=== PATIENT | male | born 1945 | race Caucasian/White ===

== ENCOUNTER → 2016-08-02 | Outpatient (CLI) | payer OTHER ==
[~2016-08-02] MED LIST: CIPR5SUS PO; FLAG500T PO; LISI10TA4 PO; RANI150T PO; SIMV20TA2 PO
[2016-08-02 13:45] LABS: BASO # 0.2 K/mm3 (0.0-0.2); BASO % 2.4 % (0.0-1.0); EOS # 0.2 K/mm3 (0.0-0.50); LARGE UNSTAINED CELL # 0.2 K/mm3 (0.0-0.4); LARGE UNSTAINED CELL % 2.7 % (0.0-4.0); MEAN CORPUSCULAR HEMOGLOBIN 31.2 pg (27.0-33.0); MEAN CORPUSCULAR HGB CONC 33.1 g/dl (32.0-36.5); MEAN CORPUSCULAR VOLUME 94.1 fl (80.0-96.0); MONO # 0.5 K/mm3 (0.0-0.8); NEUTROPHILS # 4.5 K/mm3 (1.8-7.7); NEUTROPHILS % 60.9 % (36.0-66.0); PLATELET COUNT, AUTOMATED 402 k/mm3 (150-450); RED CELL DISTRIBUTION WIDTH 14.2 % (11.5-14.5); WHITE BLOOD COUNT 7.4 K/mm3 (4.0-10.0)
[2016-08-02 14:18] LABS: ALBUMIN 3.2 GM/DL (3.2-5.2); ALBUMIN/GLOBULIN RATIO 1.07 (1.00-1.93); ALKALINE PHOSPHATASE 131 U/L (45-117); ALT/SGPT 20 U/L (12-78); ANION GAP 8 MEQ/L (8-16); AST/SGOT 18 U/L (15-37); BILIRUBIN,TOTAL 0.5 MG/DL (0.2-1.0); BLOOD UREA NITROGEN 12 MG/DL (7-18); CALCIUM LEVEL 8.3 MG/DL (8.8-10.2); CARBON DIOXIDE LEVEL 27 MEQ/L (21-32); CHLORIDE LEVEL 109 MEQ/L (98-107); CREATININE FOR GFR 1.03 MG/DL (0.70-1.30); GLOMERULAR FILTRATION RATE > 60.0 (>49); GLUCOSE, FASTING 87 MG/DL (80-110); POTASSIUM SERUM 4.2 MEQ/L (3.5-5.1); SODIUM LEVEL 144 MEQ/L (136-145); TOTAL PROTEIN 6.2 GM/DL (6.4-8.2)
== END ==
LOC: M LAB 12:46
PROVIDERS: ATTEND Student in an Organized Health Care Education/Training Program
DX: Z51.81 Encounter for therapeutic drug level monitoring (principal); Z76.89 Persons encountering health services in other specified circumstances
CPT/HCPCS: 36415; 80053; 85025; G0463

== ENCOUNTER → 2016-08-18 | Outpatient (REF) | payer OTHER | END | disposition home or self-care (01) | LOC: M SFHCPLAZ 14:52 | PROVIDERS: ATTEND Hospitalist | DX: N39.9 Disorder of urinary system, unspecified (principal); Z79.899 Other long term (current) drug therapy ==

== ENCOUNTER → 2016-09-14 | Outpatient (CLI) | payer OTHER ==
[~2016-09-14] VITALS: Ht 160 cm; Wt 50.8 kg
[~2016-09-14] MED LIST changes: +LIDOCAINE 2% INJ 100 MG/5 ML SDV (FOR ANES.) As Ordered ONE; +NS 1,000 ML IV SCH; +PROPOFOL 500 MG/50 ML VIAL As Ordered ONE
--- NOTE | 2016-09-14 08:27 | ROOR ---
Patient Name: Guanaco Kirby Procedure Date: 09/14/2016 8:08 AM Date of : 1945 Age: 70 Room: [facility] Gender: Male Note Status: Finalized Procedure: Colonoscopy Indications: Follow-up of diverticulitis Providers: Cordell Doe Jr, MD Referring MD: PPAITO PERDOMO [facility] PAPITO Reyes Requesting Provider: Medicines: Propofol per Anesthesia Complications: No immediate complications. Procedure: Pre-Anesthesia Assessment: - Prior to the procedure, a History and Physical was performed, and patient medications and allergies were reviewed. The patient is competent. The risks and benefits of the procedure and the sedation options and risks were discussed with the patient. All questions were answered and informed consent was obtained. Patient identification and proposed procedure were verified by the physician and the nurse in the pre-procedure area and in the procedure room. Mental Status Examination: alert and oriented. Airway Examination: normal oropharyngeal airway and neck mobility. Respiratory Examination: clear to auscultation. CV Examination: normal. ASA Grade Assessment: II - A patient with mild systemic disease. After reviewing the risks and benefits, the patient was deemed in satisfactory condition to undergo the procedure. The anesthesia plan was to use moderate sedation / analgesia (conscious sedation). Immediately prior to administration of medications, the patient was re-assessed for adequacy to receive sedatives. The heart rate, respiratory rate, oxygen saturations, blood pressure, adequacy of pulmonary ventilation, and response to care were monitored throughout the procedure. The physical status of the patient was re-assessed after the procedure. The Colonoscope was introduced through the sigmoid colostomy and advanced to the cecum, identified by appendiceal orifice and ileocecal valve. The colonoscopy was performed without difficulty. The patient tolerated the procedure well. The quality of the bowel preparation was adequate and good. Findings: The perianal and digital rectal examinations were normal. Pertinent negatives include normal sphincter tone, no palpable rectal lesions and no anal lesion or abnormality was detected. The rectum, recto-sigmoid colon, descending colon, transverse colon, ascending colon, cecum, appendiceal orifice and ileocecal valve appeared normal. Impression: - The rectum, recto-sigmoid colon, descending colon, transverse colon, ascending colon, cecum, appendiceal orifice and ileocecal valve are normal. - No specimens collected. Recommendation: - Discharge patient to home (ambulatory). - Return to my office in 2 weeks. Cordell Doe MD Cordell Doe Jr, MD 09/14/2016 8:26:48 AM This report has been signed electronically. Number of Addenda: 0 Note Initiated On: 09/14/2016 8:08 AM Estimated Blood Loss: Estimated blood loss: none.
[2016-09-14 08:50] VITALS: BP 128/72
== END | disposition home or self-care (01) ==
LOC: M OPP 07:11
PROVIDERS: ATTEND Surgery
DX: Z09 Encounter for follow-up examination after completed treatment for conditions other than malignant neoplasm (principal); Z87.19 Personal history of other diseases of the digestive system; I10 Essential (primary) hypertension; E78.00 Pure hypercholesterolemia, unspecified; K21.9 Gastro-esophageal reflux disease without esophagitis; Z97.2 Presence of dental prosthetic device (complete) (partial); F17.200 Nicotine dependence, unspecified, uncomplicated; F17.228 Nicotine dependence, chewing tobacco, with other nicotine-induced disorders; Z79.899 Other long term (current) drug therapy

== ENCOUNTER → 2016-11-01 | Outpatient (CLI) | payer OTHER ==
[~2016-11-01] MED LIST changes: -LIDOCAINE 2% INJ 100 MG/5 ML SDV (FOR ANES.) As Ordered ONE; -NS 1,000 ML IV SCH; -PROPOFOL 500 MG/50 ML VIAL As Ordered ONE
[2016-11-01 15:31] LABS: MEAN CORPUSCULAR HEMOGLOBIN 32.7 pg (27.0-33.0); MEAN CORPUSCULAR HGB CONC 32.8 g/dl (32.0-36.5); MEAN CORPUSCULAR VOLUME 99.5 fl (80.0-96.0); RED CELL DISTRIBUTION WIDTH 12.7 % (11.5-14.5); WHITE BLOOD COUNT 7.3 K/mm3 (4.0-10.0)
[2016-11-01 15:56] LABS: ANION GAP 7 MEQ/L (8-16); BLOOD UREA NITROGEN 17 MG/DL (7-18); CALCIUM LEVEL 8.4 MG/DL (8.8-10.2); CARBON DIOXIDE LEVEL 26 MEQ/L (21-32); CHLORIDE LEVEL 106 MEQ/L (98-107); CHOLESTEROL LEVEL 215 MG/DL (<200); CREATININE FOR GFR 1.03 MG/DL (0.70-1.30); GLOMERULAR FILTRATION RATE > 60.0 (>49); GLUCOSE, FASTING 103 MG/DL (80-110); POTASSIUM SERUM 4.4 MEQ/L (3.5-5.1); SODIUM LEVEL 139 MEQ/L (136-145); TRIGLYCERIDES LEVEL 146 MG/DL (<150)
== END ==
LOC: M LAB 14:03
PROVIDERS: ATTEND Student in an Organized Health Care Education/Training Program
DX: Z00.00 Encounter for general adult medical examination without abnormal findings (principal); Z71.89 Other specified counseling; Z79.899 Other long term (current) drug therapy

== ENCOUNTER 2016-11-10 05:44 | Inpatient (IN) | payer OTHER ==
--- NOTE | 2016-11-09 16:44 | HPE ---
DATE OF ADMISSION: 11/10/2016 BRIEF HISTORY OF PRESENT ILLNESS: Patient is a 70-year-old gentleman who had a colostomy placed for a perforated diverticulitis and has been slowly healing by secondary intention. Had significant problems with healing because of poor malnutrition issues, a heavy smoker, and heavy alcohol use. He presents for reversal of his colostomy at this time. PAST MEDICAL HISTORY: Significant for: 1. History of diverticulosis. 2. History of hypercholesterolemia. 3. History of hypertension. 4. History of exploratory laparotomy with sigmoid colectomy and end colostomy. 5. History of gastroesophageal (GE) reflux. MEDICATIONS: Include: - simvastatin - lisinopril - ranitidine PHYSICAL EXAMINATION: Reveals a frail-appearing 70-year-old male who looks much older than his stated age. HEENT: Reveals an atraumatic, normocephalic head with extraocular movements intact. Pupils are equal and reactive to light. Sclerae are nonicteric. Oropharynx is clear without exudate or lesions. NECK: Supple without adenopathy. LUNGS: Reveal rhonchi as well as a few wheezes and some crackles bilaterally. HEART: Regular with a few irregular beats. ABDOMEN: Soft, nondistended. He does have what appears to be a probable incisional hernia along the midline and is developing a parastomal hernia as well and has a colostomy which is functioning, very small in size. EXTREMITIES: Warm, well perfused. IMPRESSION/PLAN: 1. Patient presents for reversal of a colostomy. I do feel that it is reasonable to proceed with a laparoscopic reversal of his colostomy. The risks as well as benefits have been discussed with him at length, those including, but not limited to, infection, bleeding, damage to surrounding structures including bowel, bladder, nerves, vessels, ureter, kidney, and possible need for permanent colostomy or possible anastomotic leak, possible need for open operative intervention. Patient understands and would like to proceed with operative intervention. 2. Respiratory. Patient has some chronic obstructive pulmonary disease (COPD) as well as chronic smoking issues. We will continue nebulizers/respiratory care perioperatively. 3. Abdominal hernias. At this point, given that this will be a bowel surgery, I would prefer not to use mesh and, unless we use a biologic or an absorbable synthetic, I will not plan on repairing the midline hernias at this time and will try to avoid getting into these areas. I anticipate those will need operative repair in the future. He understands this as a possibility as well. 4. Gastrointestinal (GI) tract. Patient does have some GE reflux. We will continue him on some H2 blockers/proton pump inhibitors; and indeed, he is getting a bowel preparation, mechanical as well as antibiotic. We will give him perioperative antibiotics, i.e. Invanz 1 gram preoperatively, and plan on having some thromboembolism deterrents (TEDs) and sequentials. I anticipate, if we are able to do this all laparoscopically, we can avoid postoperative epidural but will need a [place] catheter for a few days postoperatively. Edited: elaine 11/15/2016 [id number]
[2016-11-10] VITALS (8 sets, daily range): BP systolic 134–173; BP diastolic 63–93; O2SAT 100
[~2016-11-10] VITALS: Ht 160 cm; Wt 59.8 kg
[2016-11-10] MEDS ORDERED: LR 1,000 ML IV SCH ×3 (06:00→10:45)
[2016-11-10] MEDS ORDERED: ERTAPENEM SODIUM 1 GM in NS MINI-BAG PLUS 50 ML IV ONE (06:00)
[2016-11-10] MEDS ORDERED: IBUP200C PO (06:14)
[2016-11-10] MEDS ORDERED: GLUCAGON FOR INJ 1 MG VIAL (J1610) As Ordered ONE (07:10)
[2016-11-10] MEDS ORDERED: BUPIVACAINE/EPIN 0.25% 30 ML VIAL As Ordered ONE (07:10)
[2016-11-10] MEDS ORDERED: PROPOFOL 200 MG/20 ML VIAL As Ordered ONE (07:55)
[2016-11-10] MEDS ORDERED: LIDOCAINE 2% INJ 100 MG/5 ML SDV (FOR ANES.) As Ordered ONE (07:55)
[2016-11-10] MEDS ORDERED: fentaNYL 250 MCG/5 ML INJECTION (J3010) As Ordered ONE (07:55)
[2016-11-10] MEDS ORDERED: ROCURONIUM BROMIDE 50 MG/5 ML VIAL As Ordered ONE ×2 (07:55→08:04)
[2016-11-10] MEDS ORDERED: MIDAZOLAM INJ 2 MG/2 ML VIAL (J2250) As Ordered ONE (07:55)
[2016-11-10] MEDS ORDERED: PHENYLephrine HCL 500 MCG/5 ML (100MCG/ML) SYRINGE (J2370) As Ordered ONE (07:57)
[2016-11-10] MEDS ORDERED: PHENYLEPHRINE INJ 10MG/ML VIAL (J2370) As Ordered ONE (07:57)
[2016-11-10] MEDS ORDERED: ESMOLOL INJ 100MG/10ML VIAL As Ordered ONE (08:33)
[2016-11-10] MEDS ORDERED: HYDROmorphone HCL 2 MG/ML 1ML VIAL (J1170) As Ordered ONE (08:35)
[2016-11-10] MEDS ORDERED: ONDANSETRON 4MG/2ML VIAL (J2405) As Ordered ONE (08:51)
[2016-11-10] MEDS ORDERED: DESFLURANE 240 ML INHALANT As Ordered ONE (09:11)
[2016-11-10] MEDS ORDERED: NEOSTIGMINE 1MG/ML 5 ML SYRINGE (J2710) As Ordered ONE (09:41)
[2016-11-10] MEDS ORDERED: GLYCOPYRROLATE INJ 0.2 MG/ML 2 ML VIAL As Ordered ONE (09:41)
[2016-11-10] MEDS ORDERED: BUPIVACAINE LIPOSOME/PF 1.3% 20 ML VIAL (13.3MG/ML)(EXPAREL) As Ordered ONE (10:03)
[2016-11-10] MEDS ORDERED: MORPHINE 4 MG/ML 1ML SYRINGE IV PRN (10:30)
[2016-11-10] MEDS ORDERED: IPRATROPIUM 0.5MG/ALBUTEROL 2.5MG INH SOL UD 3ML (DUONEB)(J7620) NEB PRN (10:30)
[2016-11-10] MEDS ORDERED: PROMETHAZINE INJ 25 MG/ML VIAL (J2550) IV PRN (10:30)
[2016-11-10] MEDS ORDERED: ONDANSETRON 4MG/2ML VIAL (J2405) IV PRN ×2 (10:30→10:45)
[2016-11-10] MEDS ORDERED: METOCLOPRAMIDE INJ 10MG/2ML VIAL (J2765) IV PRN (10:30)
[2016-11-10] MEDS ORDERED: HYDROmorphone HCL 1 MG/ML SYRINGE (J1170) As Ordered ONE (10:38)
[2016-11-10] MEDS: HYDROmorphone HCL 1 MG/ML SYRINGE (J1170) IV PRN ×3 (10:42→11:02)
[2016-11-10] MEDS ORDERED: fentaNYL 100 MCG/2 ML INJECTION (J3010) IV PRN (10:45)
[2016-11-10] MEDS: LR 1,000 ML IV SCH ×2 (11:42→18:19)
[2016-11-10] MEDS: IPRATROPIUM 0.5MG/ALBUTEROL 2.5MG INH SOL UD 3ML (DUONEB)(J7620) NEB SCH ×2 (14:00→19:32)
[2016-11-10] MEDS: FAMOTIDINE 20 MG TAB PO SCH ×2 (14:02→20:36)
[2016-11-10] MEDS: LISINOPRIL 10 MG TAB PO SCH (14:03)
[2016-11-10] MEDS: SIMVASTATIN 20 MG TAB PO SCH (20:37)
[2016-11-11 02:00] VITALS: BP 157/78
[2016-11-11 05:51] LABS: MEAN CORPUSCULAR HEMOGLOBIN 32.4 pg (27.0-33.0); MEAN CORPUSCULAR HGB CONC 32.5 g/dl (32.0-36.5); MEAN CORPUSCULAR VOLUME 99.7 fl (80.0-96.0); RED CELL DISTRIBUTION WIDTH 12.8 % (11.5-14.5); WHITE BLOOD COUNT 9.2 K/mm3 (4.0-10.0)
[2016-11-11 06:00] VITALS: BP 161/89
[2016-11-11 06:01] LABS: ANION GAP 6 MEQ/L (8-16); BLOOD UREA NITROGEN 12 MG/DL (7-18); CALCIUM LEVEL 7.5 MG/DL (8.8-10.2); CARBON DIOXIDE LEVEL 26 MEQ/L (21-32); CHLORIDE LEVEL 107 MEQ/L (98-107); CREATININE FOR GFR 0.86 MG/DL (0.70-1.30); GLOMERULAR FILTRATION RATE > 60.0 (>49); GLUCOSE, FASTING 90 MG/DL (80-110); POTASSIUM SERUM 4.4 MEQ/L (3.5-5.1); SODIUM LEVEL 139 MEQ/L (136-145)
[2016-11-11] MEDS: IPRATROPIUM 0.5MG/ALBUTEROL 2.5MG INH SOL UD 3ML (DUONEB)(J7620) NEB SCH ×3 (07:46→20:00)
[2016-11-11] MEDS: ERTAPENEM SODIUM 1 GM in NS MINI-BAG PLUS 50 ML IV SCH (08:22)
[2016-11-11] MEDS: LR 1,000 ML IV SCH ×3 (08:23→14:35)
[2016-11-11] MEDS: LISINOPRIL 10 MG TAB PO SCH (08:23)
[2016-11-11] MEDS: FAMOTIDINE 20 MG TAB PO SCH ×2 (08:23→21:16)
[2016-11-11 10:00] VITALS: BP 149/73
--- NOTE | 2016-11-11 11:14 | RO ---
DATE OF PROCEDURE: 11/10/2016 PREOPERATIVE DIAGNOSIS: History of diverticulitis with diverting colostomy and need for reversal of colostomy. POSTOPERATIVE DIAGNOSIS: History of diverticulitis with diverting colostomy and need for reversal of colostomy. PROCEDURE: Laparoscopic colostomy reversal. SURGEON: Dr. Cordell Doe REWRITE EDITOR: Dr. Olguin (Dr. Olguin provided retraction, assistance with the anastomosis, abdominal wall closure and exposure.) ANESTHESIA: General endotracheal anesthesia. ESTIMATED BLOOD LOSS: Minimal. DISPOSITION: The patient was taken to the recovery room awake, alert and hemodynamically stable. DESCRIPTION OF PROCEDURE: The patient was brought to the operating room and was given general anesthesia. After adequate anesthesia and preoperative antibiotics, the patient was prepped and draped in the usual sterile fashion. Next, the colostomy was closed using a running #1 Prolene suture, and the colostomy was mobilized out of its site using an elliptical incision around the colostomy with skin knife. Electrocautery was used cut through dermis, underlying subcutaneous tissue. Using a combination of blunt and sharp dissection, the colostomy was mobilized off the skin, subcutaneous tissue down through the fascia and then intra-abdominally I was able to mobilize some of the adhesions bluntly. Some were mobilized with electrocautery and eventually once I was able to get a good margin around the colostomy site and all clear of adhesions, a Hansel catheter was placed into this colostomy site. The abdomen was insufflated at this time and then a 5 mm left lower quadrant trocar was placed, an epigastric 10 mm trocar was placed and two right-sided 5 mm trocars were placed to take down abdominal wall adhesions as well as intra-abdominal adhesions. Multiple adhesions were taken down along the anterior abdominal wall. Most of these were able to be taken down sharply, some were taken down with Harmonic scalpel. After adequate mobilization of all these adhesions, the small bowel which was in the pelvis was able to be taken down with sharp dissection as well as Harmonic scalpel. These were all mobilized off the mesentery of the removed sigmoid colon. There was some small bowel to colon adhesions which were also taken down. Eventually, the colostomy was grasped and mobilized and brought to the rectal stump area. It was obvious that the rectal stump needed to be mobilized to some extent as well as the descending colon. Thus, multiple adhesions along the descending colon were taken down as well and this was mobilized off Gerota's fascia. Given the patient was quite a thin appearing male, and he did not have a very thick mesentery, I was able to mobilize this quite nicely all the way to the medial aspect of Gerota's capsule. Anyway, this was continued to be mobilized off the pelvic sidewall and once this was mobilized quite nicely, the rectal stump was also mobilized to some extent. There were some minimal adhesions that were angulating the rectal stump. These were mobilized as well as the peritoneum was opened on both sides of the rectal stump and anteriorly. Once this was performed, the dilators were placed in the rectum and did reach the end of the rectal stump However, this seemed to be very thickened, and I had concerns at this point that there were multiple layers of fatty tissue/peritoneum overlying this with some possible granulation. Thus, just above this, where I had mobilized the peritoneum superiorly is where we placed the anastomosis, which was an EEA, 21 size stapler. Specifically, beforehand I had ordered a smaller stapler given the fact that he had an obvious small ostomy at the time of his office visit, and I was concerned that a typical 25 EEA stapler would stretch the colonic wall. Thus, the anvil was placed in the proximal descending colon, but the 25 dilator was not able to be placed in this given that it was too small of an opening and so with the appropriate size of this 21 EEA stapler, a portion of the colostomy was resected. Approximately 3 inches of the colostomy site was resected given there was some serosal tears on this area, and an anvil was brought through the end just above the staple line. Next, this was placed back into the abdomen, and the Hansel replaced at the colostomy site. The abdomen was reinsufflated and an anastomosis was created just on the anterior surface of the rectum. It was probably an inch away from the end of the colostomy itself. The side-to-end anastomosis was created. The area was copiously irrigated until clear, and air insufflation of the rectum was performed and revealed no air leak. This area was aspirated, copiously irrigated again and all trocars were removed under direct visualization. #0 Vicryl was used to close the epigastric 10 mm trocar site, and the colostomy site was closed with #1 PDS [id number] sutures. The colostomy site was left open and packed and all other incisions were closed with talia. Dry sterile dressings were applied. The patient was awakened, extubated, brought to the recovery room awake, alert, hemodynamically stable. Sponge and needle counts correct times two.
[2016-11-11 14:00] VITALS: BP 161/77
[2016-11-11] MEDS: NICOTINE 21MG/24HR 1 EA TRANSDERMAL TD SCH (14:35)
[2016-11-11] MEDS: ACETAMINOPHEN TAB 650MG DOSE (2X325MG) PO PRN ×2 (14:35→21:17)
[2016-11-11] MEDS: zolPIDEM TARTRATE 10MG TAB PO PRN (21:15)
[2016-11-11] MEDS: SIMVASTATIN 20 MG TAB PO SCH (21:16)
[2016-11-11 22:00] VITALS: BP 182/86
[2016-11-12] MEDS: LR 1,000 ML IV SCH ×2 (00:51→08:30)
[2016-11-12] MEDS: IPRATROPIUM 0.5MG/ALBUTEROL 2.5MG INH SOL UD 3ML (DUONEB)(J7620) NEB SCH ×4 (02:00→19:49)
[2016-11-12 06:00] VITALS: BP 153/73
[2016-11-12 06:04] LABS: MEAN CORPUSCULAR HEMOGLOBIN 33.9 pg (27.0-33.0); MEAN CORPUSCULAR HGB CONC 34.4 g/dl (32.0-36.5); MEAN CORPUSCULAR VOLUME 98.6 fl (80.0-96.0); RED CELL DISTRIBUTION WIDTH 12.6 % (11.5-14.5)
[2016-11-12 06:27] LABS: ANION GAP 10 MEQ/L (8-16); BLOOD UREA NITROGEN 9 MG/DL (7-18); CALCIUM LEVEL 8.1 MG/DL (8.8-10.2); CARBON DIOXIDE LEVEL 26 MEQ/L (21-32); CHLORIDE LEVEL 105 MEQ/L (98-107); CREATININE FOR GFR 0.81 MG/DL (0.70-1.30); GLOMERULAR FILTRATION RATE > 60.0 (>49); GLUCOSE, FASTING 78 MG/DL (80-110); POTASSIUM SERUM 4.3 MEQ/L (3.5-5.1); SODIUM LEVEL 141 MEQ/L (136-145)
[2016-11-12] MEDS: LISINOPRIL 10 MG TAB PO SCH (08:30)
[2016-11-12] MEDS: FAMOTIDINE 20 MG TAB PO SCH ×2 (08:30→22:33)
[2016-11-12] MEDS: NICOTINE 21MG/24HR 1 EA TRANSDERMAL TD SCH (08:30)
[2016-11-12] MEDS: ERTAPENEM SODIUM 1 GM in NS MINI-BAG PLUS 50 ML IV SCH (08:30)
[2016-11-12] MEDS: ALVIMOPAN 12 MG CAPSULE (ENTEREG) PO SCH ×2 (09:00→22:33)
[2016-11-12 14:00] VITALS: BP 189/94
[2016-11-12 22:00] VITALS: BP 170/85
[2016-11-12] MEDS: SIMVASTATIN 20 MG TAB PO SCH (22:34)
[2016-11-12] MEDS: zolPIDEM TARTRATE 10MG TAB PO PRN (22:39)
[2016-11-13] MEDS: IPRATROPIUM 0.5MG/ALBUTEROL 2.5MG INH SOL UD 3ML (DUONEB)(J7620) NEB SCH ×4 (01:49→18:53)
[2016-11-13 06:00] VITALS: BP 162/85
[2016-11-13 07:07] LABS: MEAN CORPUSCULAR HEMOGLOBIN 32.7 pg (27.0-33.0); MEAN CORPUSCULAR HGB CONC 33.1 g/dl (32.0-36.5); MEAN CORPUSCULAR VOLUME 98.9 fl (80.0-96.0); RED CELL DISTRIBUTION WIDTH 12.6 % (11.5-14.5); WHITE BLOOD COUNT 7.8 K/mm3 (4.0-10.0)
[2016-11-13 07:32] LABS: ANION GAP 6 MEQ/L (8-16); BLOOD UREA NITROGEN 7 MG/DL (7-18); CALCIUM LEVEL 7.8 MG/DL (8.8-10.2); CARBON DIOXIDE LEVEL 31 MEQ/L (21-32); CHLORIDE LEVEL 103 MEQ/L (98-107); CREATININE FOR GFR 0.93 MG/DL (0.70-1.30); GLOMERULAR FILTRATION RATE > 60.0 (>49); GLUCOSE, FASTING 98 MG/DL (80-110); SODIUM LEVEL 140 MEQ/L (136-145)
[2016-11-13] MEDS: FAMOTIDINE 20 MG TAB PO SCH ×2 (08:39→21:25)
[2016-11-13] MEDS: LISINOPRIL 10 MG TAB PO SCH (08:39)
[2016-11-13] MEDS: ALVIMOPAN 12 MG CAPSULE (ENTEREG) PO SCH ×2 (08:39→21:25)
[2016-11-13] MEDS: NICOTINE 21MG/24HR 1 EA TRANSDERMAL TD SCH (08:39)
[2016-11-13] MEDS: ERTAPENEM SODIUM 1 GM in NS MINI-BAG PLUS 50 ML IV SCH (08:39)
[2016-11-13 13:55] VITALS: BP 163/92
[2016-11-13 14:00] VITALS: BP 148/87
[2016-11-13 15:55] VITALS: BP 163/92
[2016-11-13] MEDS: SIMVASTATIN 20 MG TAB PO SCH (21:25)
[2016-11-13] MEDS: zolPIDEM TARTRATE 10MG TAB PO PRN (21:31)
[2016-11-13 22:00] VITALS: BP 166/70
[2016-11-14 06:00] VITALS: BP 144/79
[2016-11-14 06:33] LABS: MEAN CORPUSCULAR HEMOGLOBIN 32.6 pg (27.0-33.0); MEAN CORPUSCULAR HGB CONC 33.6 g/dl (32.0-36.5); MEAN CORPUSCULAR VOLUME 97.1 fl (80.0-96.0); RED CELL DISTRIBUTION WIDTH 12.4 % (11.5-14.5); WHITE BLOOD COUNT 6.4 K/mm3 (4.0-10.0)
[2016-11-14 06:48] LABS: ANION GAP 7 MEQ/L (8-16); BLOOD UREA NITROGEN 10 MG/DL (7-18); CALCIUM LEVEL 7.5 MG/DL (8.8-10.2); CARBON DIOXIDE LEVEL 28 MEQ/L (21-32); CHLORIDE LEVEL 105 MEQ/L (98-107); CREATININE FOR GFR 0.99 MG/DL (0.70-1.30); GLOMERULAR FILTRATION RATE > 60.0 (>49); GLUCOSE, FASTING 95 MG/DL (80-110); POTASSIUM SERUM 3.4 MEQ/L (3.5-5.1); SODIUM LEVEL 140 MEQ/L (136-145)
[2016-11-14] MEDS: IPRATROPIUM 0.5MG/ALBUTEROL 2.5MG INH SOL UD 3ML (DUONEB)(J7620) NEB SCH ×2 (08:00→13:28)
[2016-11-14 08:35] VITALS: BP 144/79
[2016-11-14] MEDS: LISINOPRIL 10 MG TAB PO SCH (08:35)
[2016-11-14] MEDS: ALVIMOPAN 12 MG CAPSULE (ENTEREG) PO SCH (08:35)
[2016-11-14] MEDS: FAMOTIDINE 20 MG TAB PO SCH (08:35)
[2016-11-14] MEDS: NICOTINE 21MG/24HR 1 EA TRANSDERMAL TD SCH (08:35)
[2016-11-14] MEDS ORDERED: NORC1TAB4 PO (11:28)
--- NOTE | 2016-11-20 21:25 | DSES ---
DATE OF ADMISSION: 11/10/2016 DATE OF DISCHARGE: 11/14/2016 PRINCIPAL DIAGNOSIS: Colostomy status post perforated diverticulitis with need for reversal. ASSOCIATED DIAGNOSES: History of diverticulosis, history of diverticulitis, history of hypercholesterolemia, history of hypertension, history of sigmoid colectomy with end colostomy, history of chronic obstructive pulmonary disease (COPD), history of gastroesophageal (GE) reflux, history of malnutrition, history of ethyl alcohol (EtOH) abuse. MEDICATIONS: Include: - simvastatin - lisinopril - ranitidine BRIEF HISTORY OF PRESENT ILLNESS: The patient is a 70-year-old male who had a colostomy placed for perforated diverticulitis, had a very slow healing midline incision because of malnutrition issue, heavy smoking and heavy alcohol use. Eventually resolved and seemed to heal his midline incision and since that time his strength has become better, his weight has increased and overall malnutrition issues have relatively improved. He presents for colostomy reversal. HOSPITAL COURSE SUMMARY: The patient was admitted with the above diagnosis, was brought to the operating room where he underwent laparoscopic colostomy reversal. The patient tolerated the procedure well postoperatively, had good pain control with IV pain medication. He was started on a clear liquid diet and advanced to a regular diet and eventually his diet was progressed and it was progressed his incisions were healing nicely. He had a normal white count at the time of discharge. He had minimal pain at the time of discharge and was discharged on ibuprofen, lisinopril, ranitidine, simvastatin and [place]. He was instructed to continue with dressing changes to his colostomy site on a daily basis. Followup with myself in approximately 1-2 weeks, sooner if there was any questions, concerns, fevers or chills. He was also instructed to be on a regular diet.
== END 2016-11-14 13:36 | disposition home or self-care (01) | DRG 331 ==
LOC: M OR 05:44 → M MS5PR 12:02 → M MSPAV 11-13 15:50
PROVIDERS: ADMIT Surgery; ATTEND Surgery
PROC: 0DQM4ZZ Repair Descending Colon, Percutaneous Endoscopic Approach (ICD-10-PCS; 2016-11-10)
PROC: 0DBM4ZZ Excision of Descending Colon, Percutaneous Endoscopic Approach (ICD-10-PCS; principal; 2016-11-10 07:30)
DX: Z43.3 Encounter for attention to colostomy (principal); J44.9 Chronic obstructive pulmonary disease, unspecified; K46.9 Unspecified abdominal hernia without obstruction or gangrene; I10 Essential (primary) hypertension; F17.200 Nicotine dependence, unspecified, uncomplicated; E78.00 Pure hypercholesterolemia, unspecified; K43.5 Parastomal hernia without obstruction or gangrene; Z79.899 Other long term (current) drug therapy

== ENCOUNTER 2018-07-03 13:00 | Emergency (ER) | payer MEDICARE, OTHER | END 2018-07-03 15:32 | disposition home or self-care (01) | LOC: M ED 13:00 | DX: M67.431 Ganglion, right wrist (principal); I10 Essential (primary) hypertension; J44.9 Chronic obstructive pulmonary disease, unspecified; Z79.899 Other long term (current) drug therapy; Z79.82 Long term (current) use of aspirin; F17.210 Nicotine dependence, cigarettes, uncomplicated | CPT/HCPCS: 99283 ==

== ENCOUNTER → 2018-08-15 | Outpatient (CLI) | payer MEDICARE ==
[~2018-08-15] MED LIST changes: +ASPI1TAB PO; +IBUP200C25 PO; +NORC1TAB4 PO
[2018-08-15 10:59] LABS: BLOOD UREA NITROGEN 23 MG/DL (7-18); CREATININE FOR GFR 1.24 MG/DL (0.70-1.30); GLOMERULAR FILTRATION RATE > 60.0 (>42)
== END ==
LOC: M LAB 10:09
PROVIDERS: ATTEND Physician Assistant Surgical
DX: M67.431 Ganglion, right wrist (principal)

== ENCOUNTER 2018-10-12 10:38 | Emergency (ER) | payer MEDICARE ==
[~2018-10-12] VITALS: Ht 160 cm; Wt 54.8 kg
[2018-10-12 10:39] VITALS: BP 130/68
--- NOTE | 2018-10-12 11:53 | REP ---
CHEST, TWO VIEWS: Two views of the chest are performed and compared to prior studies most recently 06/01/2016. There is scattered interstitial fibrotic change with no evidence of acute infiltrate. There are small subcentimeter nipple shadows projecting in the lung bases bilaterally. The heart is normal in size. There is calcification and tortuosity of the thoracic aorta. The mediastinal silhouette is unchanged. There are degenerative changes of the spine. IMPRESSION: Chronic findings. Bilateral nipple shadows. No evidence of acute infiltrate. Electronically Signed by Alli Hale MD 10/12/2018 06:59 P
[2018-10-12] MEDS ORDERED: ALBUTEROL 90 MCG/ACT 8GM HFA INHALER INH ONE (12:00)
[2018-10-12] MEDS ORDERED: predniSONE 20 MG TAB PO ONE (12:00)
[2018-10-12] MEDS ORDERED: VENTAER INH (12:15)
[2018-10-12] MEDS ORDERED: PRED20TA PO (12:15)
[2018-10-12] MEDS ORDERED: MUCI600T37 PO (12:15)
== END 2018-10-12 12:24 | disposition home or self-care (01) ==
LOC: M ED 10:38
DX: J44.1 Chronic obstructive pulmonary disease with (acute) exacerbation (principal); Z79.899 Other long term (current) drug therapy; Z79.82 Long term (current) use of aspirin; F17.210 Nicotine dependence, cigarettes, uncomplicated

== ENCOUNTER 2019-07-26 13:34 | Emergency (ER) | payer MEDICARE, OTHER ==
[~2019-07-26] VITALS: Ht 162.6 cm; Wt 52.3 kg
[~2019-07-26 13:34] MED LIST changes: -ASPI1TAB PO; +ASPI81TA26 PO; +MUCI600T37 PO; -NORC1TAB4 PO; +NORC1TAB7 PO; +PRED20TA PO; -SIMV20TA2 PO; +SIMV20TA22 PO; +VENTAER INH
[2019-07-26] MEDS ORDERED: MORPHINE 10 MG/ML 1ML VIAL (J2270) IM ONE (14:15)
[2019-07-26] MEDS ORDERED: PERC5TAB12 PO (15:59)
[2019-07-26 16:05] VITALS: O2SAT 97
[2019-07-26 16:18] VITALS: BP 118/64
--- NOTE | 2019-07-27 07:09 | REP ---
CT THORACIC SPINE WITHOUT CONTRAST: HISTORY: Pain after trauma. Comparison is made with chest radiograph from October 12, 2018. Comparison chest CT study June 01, 2016. CT FINDINGS: There is multifocal sclerosis associated with several levels of degenerative disc disease. The reactive sclerosis is most pronounced at the C5-6 level in the cervical spine as well as at T1-2, T11-12, and to lesser degrees at several other mid thoracic levels. Discogenic spurring and disc space narrowing are noted. No fracture or collapse is seen. There is mild diffuse osteoarthritic facet hypertrophy and sclerosis in the thoracic spine as well. On axial images, there are buckle fractures of the right posterior 12th and 11th ribs at the costovertebral junction which appear to be acute. They are a changed from the [address] images. Questionable similar nondisplaced fracture on the right 10th rib. There is a slightly these displaced fracture of the right posterolateral 11th rib as well seen at the edge of the field of view. 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 No other traumatic abnormality is seen. IMPRESSION: There are nondisplaced fractures of the right posterior 10th, 11th, and 12th ribs at the costovertebral junction. A right posterior 11th rib fracture is also visible posteriorly. These appear acute. No thoracic spine fracture is seen. Degenerative disc changes are noted as on prior studies. Electronically Signed by Volodymyr Morrow MD 07/27/2019 09:09 A
--- NOTE | 2019-07-27 07:10 | REP ---
CT CHEST WITHOUT CONTRAST: HISTORY: Trauma. Right posterior rib pain. 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 There is bilateral lower lobe and right middle lobe linear fibrosis. There is a noncalcified pulmonary nodule in the posterior segment of the right upper lobe just above the major fissure. This measures 6 mm in greatest diameter. It is unchanged from the June 01, 2016 prior study and can be considered benign. No pulmonary mass or other significant pulmonary nodule is appreciated. No infiltrate is seen. There is no evidence of pneumothorax or hydrothorax. No mediastinal hematoma is observed. Aortic contours are smooth. There is vascular calcification. On bone window settings, there is an old ununited right posterior 11th rib fracture. There are acute nondisplaced fractures of the right 9th and 10th lateral ribs. There are nondisplaced fractures at the posterior rib ends at the costovertebral junctions on the right at T10, T11, and T12. No other fracture is appreciated. 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 There are new fractures of the right lateral and posterolateral 9th and 10th ribs. There are also right 10th, 11th, and 12th posterior rib fractures at the costovertebral junctions as described on CT T-spine study. Electronically Signed by Volodymyr Morrow MD 07/27/2019 09:09 A
== END 2019-07-26 16:23 | disposition home or self-care (01) ==
LOC: M ED 13:34
DX: S22.41XA Multiple fractures of ribs, right side, initial encounter for closed fracture (principal); J92.0 Pleural plaque with presence of asbestos; W00.1XXA Fall from stairs and steps due to ice and snow, initial encounter; Y92.098 Other place in other non-institutional residence as the place of occurrence of the external cause; I10 Essential (primary) hypertension; J44.9 Chronic obstructive pulmonary disease, unspecified; E78.9 Disorder of lipoprotein metabolism, unspecified; F17.200 Nicotine dependence, unspecified, uncomplicated; Z87.19 Personal history of other diseases of the digestive system; Z79.899 Other long term (current) drug therapy; Z90.49 Acquired absence of other specified parts of digestive tract
CPT/HCPCS: 71250; 72128; 94010; 96372; 99284; J2270

== ENCOUNTER 2019-07-30 14:16 | Emergency (ER) | payer MEDICARE, OTHER ==
[~2019-07-30] VITALS: Ht 162.6 cm; Wt 55.4 kg
[~2019-07-30 14:16] MED LIST changes: +PERC5TAB12 PO
[2019-07-30] MEDS ORDERED: PERC5TAB12 PO (16:29)
[2019-07-30 16:39] VITALS: BP 95/54
== END 2019-07-30 16:44 | disposition home or self-care (01) ==
LOC: M ED 14:16
DX: Z76.0 Encounter for issue of repeat prescription (principal); I10 Essential (primary) hypertension; J44.9 Chronic obstructive pulmonary disease, unspecified; R07.81 Pleurodynia; M54.5 Low back pain

== ENCOUNTER → 2019-08-22 | Outpatient (REF) | payer MEDICARE, OTHER ==
[2019-08-22 19:27] LABS: BASO # 0.1 10^3/uL (0.0-0.2); BASO % 0.6 % (0.0-1.0); EOS # 0.3 10^3/uL (0.0-0.5); HEMATOCRIT 39.6 % (42.0-52.0); HEMOGLOBIN 12.5 g/dl (13.5-17.5); LYMPH # 1.8 10^3/uL (1.5-5.0); LYMPH % 18.8 % (24.0-44.0); MEAN CORPUSCULAR HEMOGLOBIN 32.4 pg (27.0-33.0); MEAN CORPUSCULAR HGB CONC 31.6 g/dl (32.0-36.5); MEAN CORPUSCULAR VOLUME 102.6 fl (80.0-96.0); MONO # 0.8 10^3/uL (0.0-0.8); MONO % 8.5 % (0.0-5.0); NEUTROPHILS # 6.4 10^3/uL (1.5-8.5); NEUTROPHILS % 68.8 % (36.0-66.0); PLATELET COUNT, AUTOMATED 449 10^3/uL (150-450); RED BLOOD COUNT 3.86 10^6/uL (4.30-6.10); WHITE BLOOD COUNT 9.3 10^3/uL (4.0-10.0)
[2019-08-22 19:39] LABS: ALBUMIN 3.4 GM/DL (3.2-5.2); BILIRUBIN,TOTAL 0.2 MG/DL (0.2-1.0); CALCIUM LEVEL 8.4 MG/DL (8.8-10.2); CHOLESTEROL RISK RATIO 3.36 (<5); CREATININE FOR GFR 1.47 MG/DL (0.70-1.30); FREE T4 0.97 NG/DL (0.76-1.46); GLOMERULAR FILTRATION RATE 50.1 (>42); POTASSIUM SERUM 5.1 MEQ/L (3.5-5.1); THYROID STIMULATING HORMONE 0.732 uIU/ML (0.358-3.740); TOTAL PROTEIN 6.8 GM/DL (6.4-8.2)
[2019-08-22 19:43] LABS: TOTAL 25(OH) VITAMIN D 36.6 NG/ML (30.0-100.0)
[2019-08-22 19:44] LABS: FOLATE 10.3 NG/ML
[2019-08-22 19:45] LABS: HEMOGLOBIN A1c 5.8 %
== END ==
LOC: M LAB REF 18:08
PROVIDERS: ATTEND Nurse Practitioner Family
DX: Z00.01 Encounter for general adult medical examination with abnormal findings (principal); R07.9 Chest pain, unspecified; E78.5 Hyperlipidemia, unspecified; I10 Essential (primary) hypertension; F17.218 Nicotine dependence, cigarettes, with other nicotine-induced disorders; J61 Pneumoconiosis due to asbestos and other mineral fibers; S22.41XD Multiple fractures of ribs, right side, subsequent encounter for fracture with routine healing; F17.200 Nicotine dependence, unspecified, uncomplicated

== ENCOUNTER → 2019-09-04 | Outpatient (CLI) | payer OTHER ==
[~2019-09-04] MED LIST changes: +GASTROGRAFIN SOLUTION 30ML (Q9963) As Ordered ONE; +ISOVUE-370 76% 100ML VIAL (Q9967) As Ordered ONE
--- NOTE | 2019-09-04 16:17 | REP ---
Clinical: Abdominal pain. Possible incisional hernia. Technique: Axial contrast enhanced images from the lung bases to the pubic symphysis using oral (per protocol) and 100 ml Isovue 370 intravenous contrast material with coronal and sagittal re-formations. Precontrast images of the abdomen obtained. Comparison: 06/01/2016. Findings: Lung bases demonstrate chronic interstitial changes and calcified pleural plaques consistent with prior asbestosis. Liver, spleen, pancreas, and bilateral adrenal glands are normal. Evidence for prior cholecystectomy noted. The kidneys demonstrate age-related atrophic changes without perinephric stranding or hydronephrosis. The enteric system is without obstruction or acute inflammatory process. There is evidence for prior partial sigmoid resection. Pelvis demonstrates collapsed bladder and evidence to suggest prior prostate surgery. No ascites. No free air. No adenopathy. Musculoskeletal structures demonstrate osteopenia and degenerative changes without obvious focal acute process. Significant atherosclerotic changes to the aorta and vasculature noted including stable partially thrombosed abdominal aortic aneurysm measuring 3.1 cm maximal diameter. Impression: 1. No acute abdominopelvic pathology appreciated. No ascites, focal inflammatory stranding, or adenopathy. 2. Stable abdominal aortic aneurysm measuring 3.1 cm maximal diameter. 3. Evidence to suggest asbestosis. 4. Further chronic nonacute findings as above. 5. No evidence for hernia. Electronically Signed by Domo Segura MD 09/04/2019 04:09 P
== END ==
LOC: M RAD 13:55
PROVIDERS: ATTEND Surgery
DX: K43.2 Incisional hernia without obstruction or gangrene (principal); R10.9 Unspecified abdominal pain
CPT/HCPCS: 74178; Q9963; Q9967

== ENCOUNTER → 2019-09-11 | Outpatient (CLI) | payer OTHER ==
[~2019-09-11] MED LIST changes: +BAYE325T12 PO; -GASTROGRAFIN SOLUTION 30ML (Q9963) As Ordered ONE; -ISOVUE-370 76% 100ML VIAL (Q9967) As Ordered ONE
--- NOTE | 2019-09-11 11:46 | REP ---
Bilateral lower extremity arterial Doppler ultrasound: Right lower extremity: Brachial peak systole: 135 mmHg Dorsalis pedis peak systole : 140 mmHg HYDRAULIC PILE HAMMER OPERATOR peak systole: 140 mmHg PROSPER peak systole : 1.0 Velocity Phasicity DEBT AND BUDGET COUNSELOR 86 biphasic Profunda 79 biphasic SFA prox 106 biphasic SFA mid 84 biphasic SFA dist 49 biphasic Pop 47 biphasic CHAGO prox 86 biphasic Tib/P tr 47 biphasic HYDRAULIC PILE HAMMER OPERATOR pr 51 biphasic HYDRAULIC PILE HAMMER OPERATOR dst 50 biphasic CHAGO dst 78 biphasic Left lower extremity: Brachial peak systole: 142 mmHg Dorsalis pedis peak systole : 105 mmHg HYDRAULIC PILE HAMMER OPERATOR peak systole: 100 mmHg PROSPER peak systole : 0.74 Velocity Phasicity DEBT AND BUDGET COUNSELOR 66 biphasic Profunda 40 biphasic SFA prox 54 biphasic SFA mid 63 biphasic SFA dist 50 biphasic Pop 26 monophasic CHAGO prox 27 monophasic Tib/P tr 29 monophasic HYDRAULIC PILE HAMMER OPERATOR pr 30 monophasic HYDRAULIC PILE HAMMER OPERATOR dst 22 monophasic CHAGO dst 22 monophasic Impression: Right lower extremity: There is mild/moderate plaque diffusely, but no significant stenosis. The left lower extremity: There is moderate atheromatous plaque. There is decreased flow velocity at the DEBT AND BUDGET COUNSELOR/iliac junction . There are significantly decreased flow velocities in the popliteal and calf vessels with monophasic wave forms. Iliac vessels: Right iliac: There is mild atheromatous plaque but no significant stenosis, less than 2:1 stenosis. Left iliac: There is moderate stenosis, approximately 2:1 stenosis proximally. Distal aorta: The distal aorta measures 27 mm in transverse diameter. The peak flow velocity in the distal aorta is only 30 cm/sec. Electronically Signed by Alli Yu MD 09/11/2019 11:38 A
== END ==
LOC: M RAD 09:55
PROVIDERS: ATTEND Physician Assistant
DX: I70.213 Atherosclerosis of native arteries of extremities with intermittent claudication, bilateral legs (principal); I70.0 Atherosclerosis of aorta; F17.210 Nicotine dependence, cigarettes, uncomplicated

== ENCOUNTER → 2019-12-03 | Outpatient (CLI) | payer OTHER ==
[~2019-12-03] MED LIST changes: +CLOP75TA2 PO; +ISOVUE-300 61% 50ML VIAL As Ordered ONE; +LIDOCAINE 1% MDV 20ML VIAL As Ordered ONE; +MIDAZOLAM INJ 2MG/2ML VIAL (J2250 PER 1MG) As Ordered ONE; +fentaNYL 100 MCG/2 ML INJECTION (J3010) As Ordered ONE
[2019-12-03 06:58] LABS: HEMATOCRIT 43.9 % (42.0-52.0); HEMOGLOBIN 14.5 g/dl (13.5-17.5); MEAN CORPUSCULAR HEMOGLOBIN 32.4 pg (27.0-33.0); MEAN CORPUSCULAR VOLUME 98.2 fl (80.0-96.0); PLATELET COUNT, AUTOMATED 370 10^3/uL (150-450); RED BLOOD COUNT 4.47 10^6/uL (4.30-6.10)
[2019-12-03 07:34] LABS: ALBUMIN 3.2 GM/DL (3.2-5.2); BILIRUBIN,TOTAL 0.4 MG/DL (0.2-1.0); CALCIUM LEVEL 8.7 MG/DL (8.8-10.2); CREATININE FOR GFR 1.4 MG/DL (0.70-1.30); POTASSIUM SERUM 4.2 MEQ/L (3.5-5.1); TOTAL PROTEIN 6.8 GM/DL (6.4-8.2)
--- NOTE | 2019-12-03 09:21 | ROOPDOC ---
[facility] Report Of Operation Report of Operation DATE OF PROCEDURE: 12/03/19 PREPROCEDURE DIAGNOSES: Atherosclerosis of the [place] vessels with lifestyle limiting claudication left lower extremity POSTPROCEDURE DIAGNOSES: Same PROCEDURE: 1. Ultrasound-guided access right and left common femoral arteries 2. Aortoiliofemoral arteriogram with oblique views of the iliac arteries and selection of the left common and superficial femoral artery left lower extremity runoff 3. 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 Predilation left iliac system with 6 x 80 [place] balloon 5. Kissing stents bilateral common iliac arteries with 9 x 57 balloon-expandable express stents 6. Extension right iliac stent with 8 x 37 balloon-expandable express stent 7. Extension left iliac stent with 8 x 57 balloon-expandable express stent 8. Angioplasty distal external iliac artery on the left with 8 x 57 balloon 9. Completion arteriograms 10. Mynx closure bilateral common femoral arteries SURGEON: Seema Miranda MD ANESTHESIA: Local anesthesia 10 mL lidocaine. Moderate intravenous conscious sedation was supervised by Dr. Miranda. The patient was independently monitored by a registered nurse assigned to the Department of radiology using automated blood pressure, EKG, and pulse oximetry. The detailed sedation record is permanently stored in the hospital information system. The following is the brief sedation record: Start time 07:33, stop time 08:24, fentanyl 75 g IV, Versed 1.5 mg IV, heparin 5000 units IV. CONTRAST: 52 mL Isovue-300 INDICATION FOR PROCEDURE: This is a very pleasant 73-year-old gentleman with atherosclerosis in the [place] vessels and lifestyle limiting claudication in the left lower extremity that is getting progressively worse. It is short distance and slower to recover. Arterial duplex suggested inflow disease, worse on the left than the right. Risks benefits and alternatives to an arteriogram potential intervention were explained to the patient and he was agreeable to proceed. Informed consent was obtained. INTERPRETATION: 1. 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 The proximal common iliac arteries are stenotic bilaterally, with heavy calcium plaque. I estimate 40-50% stenosis bilaterally. The hypogastric arteries are widely patent. There is no occlusion at the distal common iliac artery proximal external iliac artery for 3 cm on the left and then it reconstitutes her collateral circulation and trickle flow through the plaque with no poststenotic dilatation noted. The right external iliac artery is also a bit narrow, possibly from lack of inflow. The external iliac arteries are not heavily calcified as the common iliac arteries are. 2. The left common femoral artery is widely patent has excellent flow into the profunda and a widely patent superficial femoral artery. This runs after widely patent popliteal artery, and there is 3 vessel runoff to the ankle. There is rapid flow through the posterior tibial artery all the way to the plantar vessels in the foot, in the peroneal arteries also has rapid flow to the ankle. The anterior tibial artery has more sluggish flow and seems to dwindle down at the ankle with only trickle flow into the dorsal pedis artery into the foot. 3. After placing kissing stents and extending the stents into the external iliac arteries bilaterally, there is widely patent inflow with excellent pulses at the common femoral arteries. No extravasation embolization or dissections were noted. REPORT OF OPERATION: The patient was brought to the angiographic suite in stable condition. His bilateral groins were prepped and draped in sterile fashion. A timeout was performed. Sedation was administered without complication. Local anesthesia was ministered to the skin and subcutaneous tissue over the right common femoral artery. A microneedle was used to access the artery under ultrasound guidance. A wire was passed through this access and the needle was removed. A 4 [place] sheath was placed and flushed with saline. A Glidewire and Omni flush catheter were advanced into the aorta at the renal arteries under fluoroscopic guidance. An aortoiliofemoral arteriogram was performed. Please see interpretation above. Next, we went up and over the bifurcation with the Glidewire and the Omni flush catheter. We had difficulty advancing the wire through the external iliac artery due to occlusion. Eventually, we were able to navigate the wire pass the occlusion into the superficial femoral artery. We then advanced the catheter an additional arteriograms including a left lower extremity runoff were performed. Although there is some mild distal tibial disease, I do not feel that requires intervention. I think the main issue is the patient's inflow. We therefore gained access in the left common femoral artery in the same fashion we did on the right. Local anesthesia was ministered to the skin and subcutaneous tissue and a microneedle was used to access the artery under ultrasound guidance a wire was passed through this access. The needle was removed and a 4 [place] sheath was placed and flushed with saline. A Glidewire was advanced through the occlusion, which took a bit of time, but eventually we were able to navigated through retrograde into the true lumen and into the aorta. We then exchange the sheath for a 7 [place] sheath and flushed the sheath with saline. We then predilated the left iliac system with a 6 x 80 [place] balloon. Following this, we placed 9 x 57 balloon-expandable stents as kissing stents at the distal common aorta into the common iliac arteries. These were deployed simultaneously and good flow was noted post-deployment. We then extended the stent on the left with an 8 x 57 balloon-expandable stent with a 1 cm overlap. We then angioplasty just distal to the stent into the distal external iliac artery and we had excellent flow through the left iliac system. We then extended the stent on the right iliac with an 8 x 37 express stent with a 1 cm overlap and had excellent flow through the right iliac system after stenting. Final imaging confirmed good flow, no dissections, no embolizations or extravasation. We had excellent pulses in both groins. Following this, we deployed Mynx closure devices in both femoral arteries with good hemostasis. Pressure was held for 10 minutes and sterile dressings were applied. The patient was taken to recovery in stable condition. He tolerated the procedure and the sedation well. ESTIMATED BLOOD LOSS: Approximately 7 mL. COMPLICATIONS: None. PLAN: It is okay for the patient to resume his home medications and diet. He will need Plavix for 60 days postprocedure. A prescription has been sent to [facility] on [address]. No strenuous exercise or lifting greater than 5 pounds for 48 hours postprocedure. We will see him back in a week to check his groin access site. Patient needs to stop smoking to prevent failure of revascularization and this was reiterated to him multiple times today. We appreciate the opportunity to participate in the care of this patient. SEEMA MIRANDA MD December 03, 2019 09:21
[2019-12-03 12:25] VITALS: BP 147/88
== END ==
LOC: M IRPRO 06:27
PROVIDERS: ATTEND Surgery Vascular Surgery
DX: I70.212 Atherosclerosis of native arteries of extremities with intermittent claudication, left leg (principal); I70.92 Chronic total occlusion of artery of the extremities; I10 Essential (primary) hypertension; F17.210 Nicotine dependence, cigarettes, uncomplicated; Z79.82 Long term (current) use of aspirin; Z79.899 Other long term (current) drug therapy

== ENCOUNTER 2020-03-11 11:50 | Day surgery (SDC) | payer OTHER ==
[~2020-03-11] VITALS: Ht 162.6 cm; Wt 51.4 kg
[~2020-03-11 11:50] MED LIST changes: -ISOVUE-300 61% 50ML VIAL As Ordered ONE; -LIDOCAINE 1% MDV 20ML VIAL As Ordered ONE; -MIDAZOLAM INJ 2MG/2ML VIAL (J2250 PER 1MG) As Ordered ONE; +NS 1,000 ML IV ONE; +PARO20TA4 PO; -fentaNYL 100 MCG/2 ML INJECTION (J3010) As Ordered ONE
[2020-03-11] MEDS ORDERED: propofoL 200 MG/20 ML VIAL As Ordered ONE (12:19)
[2020-03-11] MEDS ORDERED: LIDOCAINE 2% 100MG/5ML SDV (FOR ANES.) As Ordered ONE (12:19)
[2020-03-11] MEDS ORDERED: PHENYLephrine HCL 500 MCG/5 ML (100MCG/ML) SYRINGE (J2370) As Ordered ONE (12:38)
[2020-03-11 12:42] VITALS: BP 91/53
--- NOTE | 2020-03-31 11:29 | ROOR ---
Patient Name: Guanaco Kirby Procedure Date: 03/11/2020 11:26 AM Date of : 1945 Age: 74 Room: [facility] Gender: Male Note Status: Finalized Procedure: Colonoscopy Indications: Rectal bleeding Providers: Cordell Doe Jr, MD Referring MD: Gudelia Willard Requesting Provider: Medicines: Propofol per Anesthesia Complications: No immediate complications. Procedure: Pre-Anesthesia Assessment: - Prior to the procedure, a History and Physical was performed, and patient medications and allergies were reviewed. The patient is competent. The risks and benefits of the procedure and the sedation options and risks were discussed with the patient. All questions were answered and informed consent was obtained. Patient identification and proposed procedure were verified by the physician and the nurse in the pre-procedure area and in the procedure room. Mental Status Examination: alert and oriented. Airway Examination: normal oropharyngeal airway and neck mobility. Respiratory Examination: clear to auscultation. CV Examination: normal. ASA Grade Assessment: III - A patient with severe systemic disease. After reviewing the risks and benefits, the patient was deemed in satisfactory condition to undergo the procedure. The anesthesia plan was to use moderate sedation / analgesia (conscious sedation). Immediately prior to administration of medications, the patient was re-assessed for adequacy to receive sedatives. The heart rate, respiratory rate, oxygen saturations, blood pressure, adequacy of pulmonary ventilation, and response to care were monitored throughout the procedure. The physical status of the patient was re-assessed after the procedure. The Colonoscope was introduced through the anus and advanced to the cecum, identified by appendiceal orifice and ileocecal valve. The colonoscopy was performed without difficulty. The patient tolerated the procedure well. The quality of the bowel preparation was adequate. Findings: The descending colon, transverse colon, ascending colon, cecum, appendiceal orifice, ileocecal valve and anastomosis appeared normal. A small polyp was found in the rectum. The polyp was removed with a hot snare. Resection and retrieval were complete. Non-bleeding external and internal hemorrhoids were found during endoscopy. The hemorrhoids were Grade II (internal hemorrhoids that prolapse but reduce spontaneously) and Grade III (internal hemorrhoids that prolapse but require manual reduction). Impression: - The descending colon, transverse colon, ascending colon, cecum, appendiceal orifice, ileocecal valve and colonic anastomosis are normal. - One small polyp in the rectum, removed with a hot snare. Resected and retrieved. - Non-bleeding external and internal hemorrhoids. Recommendation: - Discharge patient to home (ambulatory). - Repeat colonoscopy in 3 - 5 years for surveillance based on pathology results. Cordell Doe MD Cordell Doe Jr, MD 03/11/2020 12:43:22 PM Electronically signed by Cordell Doe Jr, MD Number of Addenda: 0 Note Initiated On: 03/11/2020 11:26 AM Estimated Blood Loss: Estimated blood loss: none.
[2020-05-12] MEDS ORDERED: PLAV1TAB2 PO (08:15)
== END 2020-03-11 12:52 | disposition home or self-care (01) ==
LOC: M OPP 11:50
PROVIDERS: ATTEND Surgery
DX: Z03.818 Encounter for observation for suspected exposure to other biological agents ruled out (principal); K64.2 Third degree hemorrhoids; K64.1 Second degree hemorrhoids; K62.5 Hemorrhage of anus and rectum; K29.70 Gastritis, unspecified, without bleeding; K29.80 Duodenitis without bleeding; F17.210 Nicotine dependence, cigarettes, uncomplicated; Z79.82 Long term (current) use of aspirin; Z79.899 Other long term (current) drug therapy
CPT/HCPCS: 43239; 45385; 88305; J2370; U0002

== ENCOUNTER → 2020-04-06 | Outpatient (CLI) | payer OTHER ==
[~2020-04-06] MED LIST changes: -NS 1,000 ML IV ONE; +PLAV1TAB2 PO
--- NOTE | 2020-04-22 08:39 | REP ---
BILATERAL LOWER EXTREMITY ARTERIAL ULTRASOUND COMPARISON: 09/11/2019. CLINICAL: Atherosclerotic disease. TECHNIQUE: Real-time bennett scale and color Doppler evaluation using linear high frequency transducer. FINDINGS: The aorta demonstrates decreased velocity similar to prior examination at approximately 38.2 cm/s. Bilateral common iliac artery stents are again noted and demonstrate adequate flow without stenosis or occlusion. Velocities were not obtainable through the stent due to overlying bowel gas and technical difficulties. The distal right iliac stent prior to anastomosis demonstrates velocity at 192 cm/s and just passed the anastomosis in the platinum vessel measuring 195.7 cm/s. The left iliac stent just prior to anastomosis velocity at 114.5 cm/s and just distal to the anastomosis in the platinum vessel measures 162 cm/s. Evaluation of the bilateral lower extremities demonstrates a significant element of mixed atheromatous plaquing. The right lower extremity demonstrates biphasic wave patterns with element of 2:1 stenosis at the proximal anterior tibial artery. The left lower extremity demonstrates biphasic wave patterns without evidence for stenosis. 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 Left lower extremity demonstrates improved flow and velocity as compared to 08/24/2019. * Evaluation through the bilateral stent is limited due to overlying bowel gas. However, the distal portion of the stents at their anastomosis as described above appears relatively appropriate. MTDD
== END ==
LOC: M RAD 09:51
PROVIDERS: ATTEND Physician Assistant
DX: I70.212 Atherosclerosis of native arteries of extremities with intermittent claudication, left leg (principal)

== ENCOUNTER 2020-05-22 18:54 | Emergency (ER) | payer OTHER ==
[~2020-05-22] VITALS: Ht 160 cm; Wt 54.5 kg
[2020-05-22 20:17] LABS: BASO # 0.1 10^3/uL (0.0-0.2); BASO % 0.6 % (0.0-1.0); EOS # 0.1 10^3/uL (0.0-0.5); EOS % 1.7 % (0.0-3.0); HEMATOCRIT 26.1 % (42.0-52.0); HEMOGLOBIN 7.9 g/dl (13.5-17.5); LYMPH # 1.5 10^3/uL (1.5-5.0); LYMPH % 17.9 % (24.0-44.0); MEAN CORPUSCULAR HEMOGLOBIN 28.5 pg (27.0-33.0); MEAN CORPUSCULAR HGB CONC 30.3 g/dl (32.0-36.5); MEAN CORPUSCULAR VOLUME 94.2 fl (80.0-96.0); MONO % 11.9 % (0.0-5.0); NEUTROPHILS # 5.7 10^3/uL (1.5-8.5); NEUTROPHILS % 67.5 % (36.0-66.0); PLATELET COUNT, AUTOMATED 356 10^3/uL (150-450); RED BLOOD COUNT 2.77 10^6/uL (4.30-6.10); WHITE BLOOD COUNT 8.4 10^3/uL (4.0-10.0)
[2020-05-22 20:38] LABS: ALBUMIN 3.1 GM/DL (3.2-5.2); ALT/SGPT 17 U/L (12-78); BILIRUBIN,DIRECT < 0.1 MG/DL (0.0-0.2); BILIRUBIN,TOTAL 0.2 MG/DL (0.2-1.0); BLOOD UREA NITROGEN 26 MG/DL (7-18); CALCIUM LEVEL 8.3 MG/DL (8.8-10.2); CARBON DIOXIDE LEVEL 21 MEQ/L (21-32); CHLORIDE LEVEL 114 MEQ/L (98-107); CK-MB VALUE MASS 3.7 NG/ML (<3.6); CPK CREATINE PHOSPHOKINASE 277 U/L (39-308); CREATININE FOR GFR 1.18 MG/DL (0.70-1.30); GLOMERULAR FILTRATION RATE > 60.0 (>42); GLUCOSE, FASTING 89 MG/DL (70-100); MB/CK RELATIVE INDEX 1.34 (< OR =4); NT-PRO BNP 1540 PG/ML (<125); POTASSIUM SERUM 4.3 MEQ/L (3.5-5.1); SODIUM LEVEL 143 MEQ/L (136-145); TOTAL PROTEIN 6.6 GM/DL (6.4-8.2); TROPONIN I < 0.02 NG/ML (< 0.10)
[2020-05-22] MEDS ORDERED: ISOVUE-370 76% 100ML VIAL As Ordered ONE (20:55)
--- NOTE | 2020-05-22 21:06 | REPVR ---
PROCEDURE INFORMATION: Exam: XR Chest, 1 View Exam date and time: 05/22/2020 8:41 PM Age: 74 years old Clinical indication: Cough and dyspnea; Additional info: Dyspnea/cough TECHNIQUE: Imaging protocol: XR of the chest Views: 1 view. COMPARISON: CT Chest without contrast 07/26/2019 3:07 PM FINDINGS: Lungs: Increased interstitial markings. No acute infiltrates. Pleural space: Lateral pleural opacities demonstrated bilaterally consistent with calcified pleural plaques. Heart/Mediastinum: Unremarkable. No cardiomegaly. Vasculature: Uncoiled thoracic aorta. Bones/joints: Dextroscoliosis. Osteoporosis. IMPRESSION: 1. Lateral pleural opacities demonstrated bilaterally consistent with calcified pleural plaques. 2. No acute pulmonary infiltrates. Electronically signed by: Moe Gabriel On 05/22/2020 21:05:57 PM
[2020-05-22 21:42] LABS: LDH LACTATE DEHYDROGENASE 245 U/L (87-241)
--- NOTE | 2020-05-22 21:51 | REPVR ---
PROCEDURE INFORMATION: Exam: CT Angiography Chest With Contrast Exam date and time: 05/22/2020 9:18 PM Age: 74 years old Clinical indication: Dyspnea; Additional info: Dyspnea, rule out pulmonary embolism or pneumonia TECHNIQUE: Imaging protocol: Computed tomographic angiography of the chest with intravenous contrast. 3D rendering (Not supervised by radiologist): MIP and/or 3D reconstructed images were created by the technologist. Radiation optimization: All CT scans at this facility use at least one of these dose optimization techniques: automated exposure control; mA and/or kV adjustment per patient size (includes targeted exams where dose is matched to clinical indication); or iterative reconstruction. Contrast material: ISOVUE 370; Contrast volume: 75 ml; Contrast route: INTRAVENOUS (IV); COMPARISON: CT ANGIO CHEST 05/25/2016 10:02 PM FINDINGS: Pulmonary arteries: There are no pulmonary emboli. Aorta: There is no aortic dissection or aneurysm. Lungs: Bilateral apical pleuroparenchymal scarring. Jlpk-[id number] paraseptal and centrilobular emphysematous changes most pronounced in the upper mid lung zones. Parenchymal scarring lateral aspect of the right middle lobe. COPD. 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 No pleural mass or effusion. Heart: Unremarkable. No cardiomegaly. No pericardial effusion. Lymph nodes: Unremarkable. No enlarged lymph nodes. Bones/joints: Nonunited rib fractures right 10th and 11th ribs. Old rib fractures costovertebral junctions 10th through 12th ribs on the right. The spine demonstrates moderate degenerative changes. Dextroscoliosis. Soft tissues: Unremarkable. IMPRESSION: 1. Biwy-wv-cvfwullr paraseptal and centrilobular emphysematous changes most pronounced in the upper mid lung zones. 2. 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 No pleural mass or effusion. 3. There is no aortic dissection or aneurysm. 4. COPD. 5. There are no pulmonary emboli. Electronically signed by: Moe Gabriel On 05/22/2020 21:51:08 PM
[2020-05-22 22:05] VITALS: BP 170/81
--- NOTE | 2020-05-22 22:17 | ECGEPIP ---
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
== END 2020-05-22 22:26 | disposition home or self-care (01) ==
LOC: M ED 18:54
DX: J44.9 Chronic obstructive pulmonary disease, unspecified (principal); R06.00 Dyspnea, unspecified; J61 Pneumoconiosis due to asbestos and other mineral fibers; I10 Essential (primary) hypertension; E78.5 Hyperlipidemia, unspecified; I73.9 Peripheral vascular disease, unspecified
CPT/HCPCS: 71045; 71275; 80048; 80076; 82550; 82553; 83605; 83615; 83880; 84443; 84484; 85025; 93005; 93041; 94760; 99284; Q9967

== ENCOUNTER → 2020-06-01 | Outpatient (REF) | payer OTHER ==
[2020-06-01 17:43] LABS: BASO # 0.1 10^3/uL (0.0-0.2); BASO % 0.8 % (0.0-1.0); EOS % 0.3 % (0.0-3.0); HEMATOCRIT 28.4 % (42.0-52.0); HEMOGLOBIN 8.5 g/dl (13.5-17.5); LYMPH # 1.2 10^3/uL (1.5-5.0); LYMPH % 19.2 % (24.0-44.0); MEAN CORPUSCULAR HEMOGLOBIN 27.7 pg (27.0-33.0); MEAN CORPUSCULAR HGB CONC 29.9 g/dl (32.0-36.5); MEAN CORPUSCULAR VOLUME 92.5 fl (80.0-96.0); MONO # 0.6 10^3/uL (0.0-0.8); MONO % 9.2 % (0.0-5.0); NEUTROPHILS # 4.3 10^3/uL (1.5-8.5); NEUTROPHILS % 70.2 % (36.0-66.0); PLATELET COUNT, AUTOMATED 427 10^3/uL (150-450); RED BLOOD COUNT 3.07 10^6/uL (4.30-6.10); WHITE BLOOD COUNT 6.1 10^3/uL (4.0-10.0)
[2020-06-01 17:52] LABS: ALBUMIN 3.2 GM/DL (3.2-5.2); ALT/SGPT 16 U/L (12-78); BILIRUBIN,TOTAL 0.2 MG/DL (0.2-1.0); BLOOD UREA NITROGEN 19 MG/DL (7-18); CALCIUM LEVEL 8.4 MG/DL (8.8-10.2); CARBON DIOXIDE LEVEL 25 MEQ/L (21-32); CHLORIDE LEVEL 112 MEQ/L (98-107); FERRITIN 9 NG/ML (26-388); GLOMERULAR FILTRATION RATE > 60.0 (>42); GLUCOSE, FASTING 97 MG/DL (70-100); IRON (FE) 15 UG/DL (65-175); PERCENT SATURATION 3.1 % (19.7-50.0); POTASSIUM SERUM 4.1 MEQ/L (3.5-5.1); SODIUM LEVEL 144 MEQ/L (136-145); TOTAL IRON BINDING CAPACITY 479 UG/DL (250-450); TOTAL PROTEIN 6.8 GM/DL (6.4-8.2)
== END ==
LOC: M LAB REF 16:22
PROVIDERS: ATTEND Nurse Practitioner Family
DX: D64.9 Anemia, unspecified (principal)

== ENCOUNTER 2021-05-28 12:46 | Emergency (ER) | payer MEDICARE, OTHER ==
[~2021-05-28] VITALS: Ht 162.6 cm; Wt 59.2 kg
[~2021-05-28 12:46] MED LIST changes: +LISI10TA22 PO; -LISI10TA4 PO
[2021-05-28 12:47] VITALS: BP 170/75
--- OUTSIDE RECORDS SUMMARY | 2021-05-28 12:56 | CCD ---
Author Author [facility] Organization [facility] Address Unknown Phone Unavailable Care Team Providers Care Real Estate Closer Name Role Phone Sudhir, Leyda PHYSICAL THERAPY AIDE PHYSICAL THERAPY AIDE Unavailable Unavailable Sudhir, A Leyda PHYSICAL THERAPY AIDE Unavailable Unavailable Sudhir, A Leyda PHYSICAL THERAPY AIDE Unavailable Unavailable Sudhir, A Leyda PHYSICAL THERAPY AIDE Unavailable Unavailable Sudhir, A Leyda PHYSICAL THERAPY AIDE Unavailable Unavailable Sudhir, A Leyda PHYSICAL THERAPY AIDE Unavailable Unavailable Sudhir, A Leyda PHYSICAL THERAPY AIDE Unavailable Unavailable Sudhir, A Leyda PHYSICAL THERAPY AIDE Unavailable Unavailable Sudhir, A Leyda PHYSICAL THERAPY AIDE Unavailable Unavailable Sudhir, A Leyda PHYSICAL THERAPY AIDE Unavailable Unavailable Sudhir, A Leyda PHYSICAL THERAPY AIDE Unavailable Unavailable Sudhir, A Leyda PHYSICAL THERAPY AIDE Unavailable Unavailable Sudhir, A Leyda PHYSICAL THERAPY AIDE Unavailable Unavailable Sudhir, A Leyda PHYSICAL THERAPY AIDE Unavailable Unavailable Sudhir, A Leyda PHYSICAL THERAPY AIDE Unavailable Unavailable Sudhir, A Leyda PHYSICAL THERAPY AIDE Unavailable Unavailable Sudhir, A Leyda PHYSICAL THERAPY AIDE Unavailable Unavailable Sudhir, A Leyda PHYSICAL THERAPY AIDE Unavailable Unavailable Sudhir, A Leyda PHYSICAL THERAPY AIDE Unavailable Unavailable Sudhir, A Leyda PHYSICAL THERAPY AIDE Unavailable Unavailable Sudhir, A Leyda PHYSICAL THERAPY AIDE Unavailable Unavailable Sudhir, A Leyda PHYSICAL THERAPY AIDE Unavailable Unavailable Suhdir, A Leyda PHYSICAL THERAPY AIDE Unavailable Unavailable Sudhir, A Leyda PHYSICAL THERAPY AIDE Unavailable Unavailable Sudhir, A Leyda PHYSICAL THERAPY AIDE Unavailable Unavailable Sudhir, A Leyda PHYSICAL THERAPY AIDE Unavailable Unavailable Sudhir, A Leyda PHYSICAL THERAPY AIDE Unavailable Unavailable Sudhir, A Leyda PHYSICAL THERAPY AIDE Unavailable Unavailable Sudhir, A Leyda PHYSICAL THERAPY AIDE Unavailable Unavailable Sudhir, A Leyda PHYSICAL THERAPY AIDE Unavailable Unavailable Sudhir, A Leyda PHYSICAL THERAPY AIDE Unavailable Unavailable Sudhir, A Leyda PHYSICAL THERAPY AIDE Unavailable Unavailable Re-disclosure Warning The records that you are about to access may contain information from federally-assisted alcohol or drug abuse programs. If such information is present, then the following federally mandated warning applies: This information has been disclosed to you from records protected by federal confidentiality rules (42 CFR part 2). The federal rules prohibit you from making any further disclosure of this information unless further disclosure is expressly permitted by the written consent of the person to whom it pertains or as otherwise permitted by 42 CFR part 2. A general authorization for the release of medical or other information is NOT sufficient for this purpose. The Federal rules restrict any use of the information to criminally investigate or prosecute any alcohol or drug abuse patient.The records that you are about to access may contain highly sensitive health information, the redisclosure of which is protected by Article 27-F of the [facility] Public Health law. If you continue you may have access to information: Regarding HIV / AIDS; Provided by facilities licensed or operated by the [facility] Office of Mental Health; or Provided by the [facility] Office for People With Developmental Disabilities. If such information is present, then the following [facility] mandated warning applies: This information has been disclosed to you from confidential records which are protected by state law. State law prohibits you from making any further disclosure of this information without the specific written consent of the person to whom it pertains, or as otherwise permitted by law. Any unauthorized further disclosure in violation of state law may result in a fine or snf sentence or both. A general authorization for the release of medical or other information is NOT sufficient authorization for further disc losure. Allergies and Adverse Reactions Type Description Substance Reaction Status Data Source(s ) Allergy to substance Allergy to substance Allergy to substance MARLON ([facility]) Family History Family Member Name Family Member Gender Family Member Status Date o f Status Description Data Source(s) Unknown Unknown Problem MEDENT ([facility]) Encounters Encounter Providers Location Date Indications Data Source(s ) Leyda Peguero, [facility]-: [address], [place] [address], Ph. Attender: Leyda Peguero [facility] Medical 06/01/2020 12:00:00 AM EST MARLON ([facility]) Outpatient Attender: ALVA Peguero [facility] 04/16/2020 08:01:20 P M EDT [facility] Medications Medication Brand Name Start Date Product Form Dose Route Admi nistrative Instructions Pharmacy Instructions Status Indications Reaction Description Data Source(s) Acetaminophen 325 MG / Oxycodone Hydroch loride 5 MG Oral Tablet oxycodone- acetaminophen 5 mg-325 mg tablet oxycodone-acetaminophen 5 mg-325 mg tablet completed acetaminop hen 325 MG / oxycodone hydrochloride 5 MG Oral Tablet [facility]LON ([facility]) Insurance Providers Payer name Policy type / Coverage type Policy ID Covered green party ID Covered green party's relationship to rod Policy Rod Plan Information MEDICARE A [id number] Self [id number] J11 Medicare [place] Med[place]ap Part B [id number] Self [id number] [facility] ([facility]) Commercial Hmo [id number] Self Hmo [employer]etna ([facility]) Commercial MEBQPPQR [id number] Self MEBQPPQR Aetna ([facility]) Commercial MEBQPPQR [id number] Self MEBQPPQR AETNA MEDICARE COMPLETE G MEBQPPQR Self MEBQPPQR AETNA MEDICARE COMPLETE G MEBOPPOR Self MEBOPPOR MEDICARE A [id number] Self [id number] J11 [employer] Plans P [id number] S [id number] Medicare S [id number] S [id number] J11 MEDICARE C [id number] S [id number] J11 AETNA US HEALTHCARE O MEBQPPQR [id number] S MEBQPPQR AETNA MEDICARE MEBQPPQR SP MEBQP PQR AETNA MEDICARE MEBQPPQR SP MEBQP PQR MEDICARE [id number] SP [id number] A TODAYS OPTIONS [id number] SP [id number] Today's Option Medicare Commercial [id number] Self [id number] Today's Option Medicare Commercial [id number] Self [id number] TODAYS OPTIONS [id number] SP [id number] TODAYS OPTIONS [id number] SP [id number] Medicare [place] Medicare Primary [id number] Self MEDICARE [id number] SP [id number] A [employer]YS OPTIONS/[place] O [id number] S [id number] MEDICARE C [id number] S [id number] A MEDICARE COMPLETE [id number] SP [id number] MEDICARE COMPLETE-[facility] O [id number] S [id number] MEDICARE COMPLETE [id number] SP [id number] HUMANA GOLD [id number] SP [id number] A HUMANA GOLD O [id number] S [id number] MEDICARE [id number] SP [id number] J11 [employer] Plans S [id number] S [id number] Medicare P UNAVAILABLE S UNAVAILA BLE [employer] Plans S UNAVAILABLE S UNAVAILABLE HUMANA GOLD [id number] SP [id number] AETNA MEDICARE MEBQPPQR SP MEBQP PQR Labors Local [facility] (pr) Medigap Part B [id number] Self [id number] [employer] [place] MEBQPPQR [id number] S MEBQPPQR Problems, Conditions, and Diagnoses No Information Surgeries/Procedures No Information Results No Information Social History No Information Vital Signs ID Date Data Source UNK Name Value Range Interpretation Code Description Data Source(s) Diastolic blood pressure 85 mm[Hg] 85 mm[Hg] MAR[place]ON ([facility]) Diastolic blood pressure 91 mm[Hg] 91 mm[Hg] [place] ([facility]) Body height 64 [in_i] 64 [in_i] MARLON ([facility]) Body mass index (BMI) [Ratio] 22.8 kg/m2 22.8 k g/m2 MARLON ([facility]) Systolic blood pressure 157 mm[Hg] 157 mm[Hg] A [facility] ([facility]) Systolic blood pressure 154 mm[Hg] 154 mm[Hg] A [facility] ([facility]) Body weight 2121.6 [oz_av] 2121.6 [oz_av] ATHEN A ([facility]) Systolic blood pressure 112 mm[Hg] 112 mm[Hg] M DAVE ([facility], ) left Diastolic blood pressure 82 mm[Hg] 82 mm[Hg] MARIYA ([facility], ) left Body height 63 [in_i] 63 [in_i] MARIYA ([facility], ) 5'3" Body weight 121.00 [lb_av] 121.00 [lb_av] SARA Diop ([facility], ) Body mass index (BMI) [Ratio] 21.4 kg/m2 21.4 k g/m2 MARIYA ([facility], ) Body weight 54.886 kg 54.886 kg [facility]IYA ([facility] Patient Treatment Plan of Care Planned Activity Planned Date Details Description Data Source (s) Acetaminophen 325 MG / Oxycodone Hydrochloride 5 MG Oral Tablet MARLON ([facility])
[2021-05-28] MEDS ORDERED: methylPREDNISolone 125MG 2ML VIAL IV ONE (13:40)
[2021-05-28] MEDS: COMBIVENT RESPIMAT 100-20MCG INHALER 4GM INH SCH ×5 (13:40→14:52)
[2021-05-28 14:30] LABS: ABG BASE EXCESS 1.8 (-2.0-2.0); ABG HCO3 24.9 MEQ/L (22.0-26.0); ABG O2 SATURATION 93.6 % (95.0-99.0); ABG PARTIAL PRESSURE CO2 34.4 mmHg (35.0-45.0); ABG PARTIAL PRESSURE O2 61.9 mmHg (75.0-100.0); ABG STANDARD HCO3 25.9 MEQ/L (22.0-26.0); ABG TOTAL CO2 25.9 MEQ/L (23.0-31.0); ABG pH (ARTERIAL) 7.477 UNITS (7.350-7.450)
--- NOTE | 2021-05-28 14:42 | REP ---
INDICATION: DYSPNEA/COUGH. COMPARISON: CTA and AP CXR 05/22/2020. TECHNIQUE: AP portable seated. FINDINGS: Lungs well inflated. There are calcified diaphragmatic plaques and calcified plaques laterally in the chest cevallos pattern and distribution unchanged from the previous studies. Underlying fibrosis and COPD. There is no dense consolidation or definite effusion. Some apical pleural scarring is again noted. Heart is not grossly enlarged. Tortuous calcified aorta unchanged. Pulmonary arteries are prominent at the hilum in taper rapidly suggesting pulmonary artery hypertension, likely on the basis of COPD. Airway is intact. Bones show degenerative changes in the spine and shoulders. No free air under the diaphragm. Old posttraumatic changes of the chest wall and ribs on the right IMPRESSION: 1. 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 All of this unchanged. No new or superimposed acute infiltrate or parenchymal mass. 2. No gross cardiomegaly, edema or visible effusion. 3. Degenerative changes in the spine and shoulders. <Electronically signed by Chris Metz > 05/28/21 0334
--- OUTSIDE RECORDS SUMMARY | 2021-05-28 15:11 | CCD ---
Author Author [facility] Organization [facility] Address Unknown Phone Unavailable Care Team Providers Care Dehydration Unit Operator Name Role Phone Sudhir, Leyda SAW STRAIGHTENER SAW STRAIGHTENER Unavailable Unavailable Sudhir, A Leyda SAW STRAIGHTENER Unavailable Unavailable Sudhir, A Leyda SAW STRAIGHTENER Unavailable Unavailable Sudhir, A Leyda SAW STRAIGHTENER Unavailable Unavailable Sudhir, A Leyda SAW STRAIGHTENER Unavailable Unavailable Sudhir, A Leyda SAW STRAIGHTENER Unavailable Unavailable Sudhir, A Leyda SAW STRAIGHTENER Unavailable Unavailable Sudhir, A Leyda SAW STRAIGHTENER Unavailable Unavailable Sudhir, A Leyda SAW STRAIGHTENER Unavailable Unavailable Sudhir, A Leyda SAW STRAIGHTENER Unavailable Unavailable Sudhir, A Leyda SAW STRAIGHTENER Unavailable Unavailable Sudhir, A Leyda SAW STRAIGHTENER Unavailable Unavailable Sudhir, A Leyda SAW STRAIGHTENER Unavailable Unavailable Sudhir, A Leyda SAW STRAIGHTENER Unavailable Unavailable Sudhir, A Leyda SAW STRAIGHTENER Unavailable Unavailable Sudhir, A Leyda SAW STRAIGHTENER Unavailable Unavailable Sudhir, A Leyda SAW STRAIGHTENER Unavailable Unavailable Sudhir, A Leyda SAW STRAIGHTENER Unavailable Unavailable Sudhir, A Leyda SAW STRAIGHTENER Unavailable Unavailable Sudhir, A Leyda SAW STRAIGHTENER Unavailable Unavailable Sudhir, A Leyda SAW STRAIGHTENER Unavailable Unavailable Sudhir, A Leyda SAW STRAIGHTENER Unavailable Unavailable Sudhir, A Leyda SAW STRAIGHTENER Unavailable Unavailable Sudhir, A Leyda SAW STRAIGHTENER Unavailable Unavailable Sudhir, A Leyda SAW STRAIGHTENER Unavailable Unavailable Sudhir, A Leyda SAW STRAIGHTENER Unavailable Unavailable Sudhir, A Leyda SAW STRAIGHTENER Unavailable Unavailable Sudhir, A Leyda SAW STRAIGHTENER Unavailable Unavailable Sudhir, A Leyda SAW STRAIGHTENER Unavailable Unavailable Sudhir, A Leyda SAW STRAIGHTENER Unavailable Unavailable Sudhir, A Leyda SAW STRAIGHTENER Unavailable Unavailable Sudhir, A Leyda SAW STRAIGHTENER Unavailable Unavailable Re-disclosure Warning The records that [...] is protected by Article 27-F of the [facility] Public Health law. If you continue you may have access to information: Regarding HIV / AIDS; Provided by facilities licensed or operated by the [facility] Office of Mental Health; or Provided by the [facility] Office for People With Developmental Disabilities. If such information is present, then the following [facility] mandated warning applies: This information has [...] Allergy to substance Allergy to substance MARLON ([facility]) Family History Family Member Name Family Member Gender Family Member Status Date o f Status Description Data Source(s) Unknown Unknown Problem MEDENT ([facility]) Encounters Encounter Providers Location Date Indications Data Source(s ) Leyda Peguero, [facility]-: [address], [place] [address], Ph. Attender: Leyda Peguero [facility] Medical 06/01/2020 12:00:00 AM EST MARLON ([facility]) Outpatient Attender: ALVA Peguero [facility] 04/16/2020 08:01:20 P M EDT [facility] Medications Medication Brand Name Start Date Product Form Dose Route Admi nistrative Instructions Pharmacy Instructions Status Indications Reaction Description Data Source(s) Acetaminophen 325 MG / Oxycodone Hydroch loride 5 MG Oral Tablet oxycodone- acetaminophen 5 mg-325 mg tablet oxycodone-acetaminophen 5 mg-325 mg tablet completed acetaminop hen 325 MG / oxycodone hydrochloride 5 MG Oral Tablet MARLON ([facility]) Insurance Providers Payer name Policy type / Coverage type Policy ID Covered republican ID Covered republican's relationship to rod Policy Rod Plan Information MEDICARE A [id number] Self [id number] [id number] Medicare [place] Medigap Part B [id number] Self [id number] [facility] ([facility]) Commercial Hmo [id number] Self Hmo Aetna ([facility]) Commercial MEBQPPQR [id number] Self MEBQPPQR Aetna ([facility]) Commercial MEBQPPQR [id number] Self MEBQPPQR AETNA MEDICARE COMPLETE G MEBQPPQR Self MEBQPPQR AETNA MEDICARE COMPLETE G MEBOPPOR Self MEBOPPOR MEDICARE A [id number] Self [id number] J11 [employer] Plans P [id number] S [id number] Medicare S [id number] S [id number] J11 MEDICARE C [id number] S [id number] J11 AETNA US HEALTHCARE O MEBQPPQR [id number] S MEBQPPQR AETNA MEDICARE MEBQPPQR SP MEBQP PQR AETNA MEDICARE MEBQPPQR SP MEBQP PQR MEDICARE [id number] SP [id number] A TOD[employer]YS OPTIONS [id number] SP [id number] Today's Option Medicare Commercial [id number] Self [id number] Today's Option Medicare Commercial [id number] Self [id number] TODAYS OPTIONS [id number] SP [id number] TODAYS OPTIONS [id number] SP [id number] Medicare [place] Medicare Primary [id number] Self MEDICARE [id number] SP [id number] A [employer] OPTIONS/[place] O [id number] S [id number] MEDICARE C [id number] S [id number] A MEDICARE COMPLETE [id number] SP [id number] MEDICARE COMPLETE-[facility] O [id number] S [id number] MEDICARE COMPLETE [id number] SP [id number] HUMANA GOLD [id number] SP [id number] A HUMANA GOLD O [id number] S [id number] MEDICARE [id number] SP [id number] J11 [employer] Plans S [id number] S [id number] Medicare P UNAVAILABLE S UNAVAILA BLE [employer] Plans S UNAVAILABLE S UNAVAILABLE HU[employer]NA GOLD [id number] SP [id number] AETNA MEDICARE MEBQPPQR SP MEBQP PQR Labors Local [facility] (pr) Medigap Part B [id number] Self [id number] [employer] [place] MEBQPPQR [id number] S MEBQPPQR Problems, Conditions, and Diagnoses No Information Surgeries/Procedures No Information Results No Information Social History No Information Vital Signs ID Date Data Source UNK Name Value Range Interpretation Code Description Data Source(s) Diastolic blood pressure 85 mm[Hg] 85 mm[Hg] MAR[place]ON ([facility]) Diastolic blood pressure 91 mm[Hg] 91 mm[Hg] [place] ([facility]) Body height 64 [in_i] 64 [in_i] MAR[place]ON ([facility]) Body mass index (BMI) [Ratio] 22.8 kg/m2 22.8 k g/m2 MAR[place]ON ([facility]) Systolic blood pressure 157 mm[Hg] 157 mm[Hg] A [facility] ([facility]) Systolic blood pressure 154 mm[Hg] 154 mm[Hg] A [facility] ([facility]) Body weight 2121.6 [oz_av] 2121.6 [oz_av] ATHEN A ([facility]) Systolic blood pressure 112 mm[Hg] 112 mm[Hg] M DAVE ([facility], ) left Diastolic blood pressure 82 mm[Hg] 82 mm[Hg] MARIYA ([facility], ) left Body height 63 [in_i] 63 [in_i] MARIYA ([facility], ) 5'3" Body weight 121.00 [lb_av] 121.00 [lb_av] SARA Diop ([facility], ) Body mass index (BMI) [Ratio] 21.4 kg/m2 21.4 k g/m2 MARIYA ([facility], ) Body weight 54.886 kg 54.886 kg [facility]IYA ([facility] Patient Treatment Plan of Care Planned Activity Planned Date Details Description Data Source (s) Acetaminophen 325 MG / Oxycodone Hydrochloride 5 MG Oral Tablet MARLON ([facility])
[2021-05-28 15:14] LABS: BASO # 0.1 10^3/uL (0.0-0.2); BASO % 0.7 % (0.0-1.0); HEMATOCRIT 41.5 % (42.0-52.0); HEMOGLOBIN 13.2 g/dl (13.5-17.5); LYMPH # 0.8 10^3/uL (1.5-5.0); MEAN CORPUSCULAR HEMOGLOBIN 30.5 pg (27.0-33.0); MEAN CORPUSCULAR HGB CONC 31.8 g/dl (32.0-36.5); MEAN CORPUSCULAR VOLUME 95.8 fl (80.0-96.0); MONO # 1.1 10^3/uL (0.0-0.8); MONO % 11.8 % (2.0-8.0); NEUTROPHILS % 78.2 % (36.0-66.0); PLATELET COUNT, AUTOMATED 262 10^3/uL (150-450); RED BLOOD COUNT 4.33 10^6/uL (4.30-6.10); WHITE BLOOD COUNT 8.9 10^3/uL (4.0-10.0)
[2021-05-28 15:49] LABS: ALBUMIN 3.1 GM/DL (3.2-5.2); ALT/SGPT 19 U/L (12-78); BILIRUBIN,DIRECT 0.1 MG/DL (0.0-0.2); BILIRUBIN,TOTAL 0.4 MG/DL (0.2-1.0); BLOOD UREA NITROGEN 16 MG/DL (7-18); CALCIUM LEVEL 8.6 MG/DL (8.8-10.2); CARBON DIOXIDE LEVEL 25 MEQ/L (21-32); CHLORIDE LEVEL 104 MEQ/L (98-107); CK-MB VALUE MASS 2.6 NG/ML (<3.6); CPK CREATINE PHOSPHOKINASE 657 U/L (39-308); CREATININE FOR GFR 1.17 MG/DL (0.70-1.30); GLOMERULAR FILTRATION RATE > 60.0 (>42); GLUCOSE, FASTING 117 MG/DL (70-100); NT-PRO BNP 411 PG/ML (<125); SODIUM LEVEL 139 MEQ/L (136-145); THYROID STIMULATING HORMONE 0.724 uIU/ML (0.358-3.740); THYROXINE (T4) 7.6 UG/DL (4.5-12.0); TROPONIN I < 0.02 NG/ML (< 0.10)
[2021-05-28] MEDS ORDERED: PRED20TA PO (16:04)
--- NOTE | 2021-05-28 17:40 | ECGEPIP ---
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
== END 2021-05-28 15:45 | disposition left against medical advice (07) ==
LOC: M ED 12:46
DX: J44.0 Chronic obstructive pulmonary disease with (acute) lower respiratory infection (principal); I10 Essential (primary) hypertension; E78.9 Disorder of lipoprotein metabolism, unspecified; F03.90 Unspecified dementia, unspecified severity, without behavioral disturbance, psychotic disturbance, mood disturbance, and anxiety; Z79.899 Other long term (current) drug therapy; Z79.82 Long term (current) use of aspirin; Z79.01 Long term (current) use of anticoagulants; F17.210 Nicotine dependence, cigarettes, uncomplicated
CPT/HCPCS: 36600; 71045; 80048; 80076; 82550; 82553; 82803; 83605; 83880; 84436; 84443; 84484; 85025; 87040; 87798; 93005; 93041; 94640; 96374; 99284; J2930

== ENCOUNTER 2021-05-30 12:44 | Emergency (ER) | payer MEDICARE ==
[~2021-05-30] VITALS: Ht 162.6 cm; Wt 55.5 kg
[2021-05-30 12:45] VITALS: BP 163/95
--- OUTSIDE RECORDS SUMMARY | 2021-05-30 12:55 | CCD ---
Author Author [facility] Organization [facility] Address Unknown Phone Unavailable Care Team Providers Care Supervisor Inspecting Name Role Phone Sudhir, Leyda ASSOCIATE PROFESSOR OF THEATRE ASSOCIATE PROFESSOR OF THEATRE Unavailable Unavailable Sudhir, A Leyda ASSOCIATE PROFESSOR OF THEATRE Unavailable Unavailable Sudhir, A Leyda ASSOCIATE PROFESSOR OF THEATRE Unavailable Unavailable Sudhir, A Leyda ASSOCIATE PROFESSOR OF THEATRE Unavailable Unavailable Sudhir, A Leyda ASSOCIATE PROFESSOR OF THEATRE Unavailable Unavailable Sudhir, A Leyda ASSOCIATE PROFESSOR OF THEATRE Unavailable Unavailable Sudhir, A Leyda ASSOCIATE PROFESSOR OF THEATRE Unavailable Unavailable Sudhir, A Leyda ASSOCIATE PROFESSOR OF THEATRE Unavailable Unavailable Sudhir, A Leyda ASSOCIATE PROFESSOR OF THEATRE Unavailable Unavailable Sudhir, A Leyda ASSOCIATE PROFESSOR OF THEATRE Unavailable Unavailable Sudhir, A Leyda ASSOCIATE PROFESSOR OF THEATRE Unavailable Unavailable Sudhir, A Leyda ASSOCIATE PROFESSOR OF THEATRE Unavailable Unavailable Sudhir, A Leyda ASSOCIATE PROFESSOR OF THEATRE Unavailable Unavailable Sudhir, A Leyda ASSOCIATE PROFESSOR OF THEATRE Unavailable Unavailable Sudhir, A Leyda ASSOCIATE PROFESSOR OF THEATRE Unavailable Unavailable Sudhir, A Leyda ASSOCIATE PROFESSOR OF THEATRE Unavailable Unavailable Sudhir, A Leyda ASSOCIATE PROFESSOR OF THEATRE Unavailable Unavailable Sudhir, A Leyda ASSOCIATE PROFESSOR OF THEATRE Unavailable Unavailable Sudhir, A Leyda ASSOCIATE PROFESSOR OF THEATRE Unavailable Unavailable Sudhir, A Leyda ASSOCIATE PROFESSOR OF THEATRE Unavailable Unavailable Sudhir, A Leyda ASSOCIATE PROFESSOR OF THEATRE Unavailable Unavailable Sudhir, A Leyda ASSOCIATE PROFESSOR OF THEATRE Unavailable Unavailable Sudhir, A Leyda ASSOCIATE PROFESSOR OF THEATRE Unavailable Unavailable Sudhir, A Leyda ASSOCIATE PROFESSOR OF THEATRE Unavailable Unavailable Sduhir, A Leyda ASSOCIATE PROFESSOR OF THEATRE Unavailable Unavailable Sudhir, A Leyda ASSOCIATE PROFESSOR OF THEATRE Unavailable Unavailable Sudhir, A Leyda ASSOCIATE PROFESSOR OF THEATRE Unavailable Unavailable Sudhir, A Leyda ASSOCIATE PROFESSOR OF THEATRE Unavailable Unavailable Sudhir, A Leyda ASSOCIATE PROFESSOR OF THEATRE Unavailable Unavailable Sudhir, A Leyda ASSOCIATE PROFESSOR OF THEATRE Unavailable Unavailable Sudhir, A Leyda ASSOCIATE PROFESSOR OF THEATRE Unavailable Unavailable Sudhir, A Leyda ASSOCIATE PROFESSOR OF THEATRE Unavailable Unavailable Re-disclosure Warning The records that [...] is protected by Article 27-F of the [facility] Public Health law. If you continue you may have access to information: Regarding HIV / AIDS; Provided by facilities licensed or operated by the [facility] Office of Mental Health; or Provided by the [facility] Office for People With Developmental Disabilities. If such information is present, then the following [facility] mandated warning applies: This information has been [...] law may result in a fine or care home sentence or both. A general authorization for the release of medical or other information is NOT sufficient authorization for further disc losure. Allergies and Adverse Reactions Type Description Substance Reaction Status Data Source(s ) Allergy to substance Allergy to substance Allergy to substance [facility]ON ([facility]) Family History Family Member Name Family Member Gender Family Member Status Date o f Status Description Data Source(s) Unknown Unknown Problem [facility] Encounters Encounter Providers Location Date Indications Data Source(s ) ALVA Carver-: [address], [place] [address], Ph. Attender: Leyda CALLE [facility] Medical 06/01/2020 12:00:00 AM EST MAR[facility]ON ([facility]) [facility]: [facility] 08:01:20 P M EDT [facility] Medications Medication Brand Name Start Date Product Form Dose Route Admi nistrative Instructions Pharmacy Instructions Status Indications Reaction Description Data Source(s) Acetaminophen 325 MG / Oxycodone Hydroch loride 5 MG Oral Tablet oxycodone- acetaminophen 5 mg-325 mg tablet oxycodone-acetaminophen 5 mg-325 mg tablet completed acetaminop hen 325 MG / oxycodone hydrochloride 5 MG Oral Tablet [facility] ([facility]) Insurance Providers Payer name Policy type / Coverage type Policy ID Covered constitution party ID Covered constitution party's relationship to rod Policy Rod Plan Information MEDICARE A [id number] Self [id number] [id number] Medicare [place] Medigap Part B [id number] Self [id number] [facility] ([facility]) Commercial Hmo .[id number] Self Hmo [employer]etna ([facility]) Commercial MEBQPPQR [id number] Self MEBQPPQR Aetna ([facility]) Commercial MEBQPPQR [id number] Self MEBQPPQR AETNA MEDICARE COMPLETE G MEBQPPQR Self MEBQPPQR AETNA MEDICARE COMPLETE G MEBOPPOR Self MEBOPPOR MEDICARE A [id number] Self [id number] [id number] [employer] Plans P [id number] S [id number] Medicare S [id number] S [id number] J11 AETNA US HEALTHCARE TX O MEBQPPQR [id number] S MEBQPPQR MEDICARE C [id number] S [id number] J11 AETNA US HEALTHCARE O MEBQPPQR [id number] S MEBQPPQR AETNA MEDICARE MEBQPPQR SP MEBQP PQR AETNA MEDICARE MEBQPPQR SP MEBQP PQR MEDICARE [id number] SP [id number] A TOD[employer]YS OPTIONS [id number] SP [id number] Today's Option Medicare Commercial [id number] Self [id number] Today's [employer] Medicare Commercial [id number] Self [id number] TOD[employer] OPTIONS [id number] SP [id number] TODAYS OPTIONS [id number] SP [id number] Medicare [place] Medicare Primary [id number] Self MEDICARE [id number] SP [id number] A [employer] OPTIONS/[place] O [id number] S [id number] MEDICARE C [id number] S [id number] A MEDICARE COMPLETE [id number] SP [id number] MEDICARE COMPLETE[facility] O [id number] S [id number] MEDICARE COMPLETE [id number] SP [id number] MEDICARE [id number] SP [id number] [id number] A HUMANA GOLD [id number] SP [id number] 5 HUMANA GOLD O [id number] S [id number] MEDICARE [id number] SP [id number] J11 [employer] Plans S [id number] S [id number] Medicare P UNAVAILABLE S UNAVAILA BLE [employer] Plans S UNAVAILABLE S UNAVAILABLE HU[employer] GOLD [id number] SP [id number] AETNA MEDICARE MEBQPPQR SP MEBQP PQR [employer] Local 322 (pr) Medigap Part B [id number] Self [id number] Problems, Conditions, and Diagnoses No Information Surgeries/Procedures No Information Results ID Date Data Source [id number] 05/28/2021 02:46:00 PM EDT [facility] Name Value Range Interpretation Code Description Data Izabella rce(s) Supporting Document(s) SARS-CoV-2 (COVID 19) NEGATIVE - SARS-CoV-2 (COVID19) [facility] This lab was ordered by [facility] a nd reported by [facility]. Procedure Social History No Information Vital Signs ID Date Data Source UNK Name Value Range Interpretation Code Description Data Source(s) Diastolic blood pressure 85 mm[Hg] 85 mm[Hg] MAR[facility]ON ([facility]) Diastolic blood pressure 91 mm[Hg] 91 mm[Hg] [facility]ON ([facility]) Body height 64 [in_i] 64 [in_i] [facility]ON ([facility]) Body mass index (BMI) [Ratio] 22.8 kg/m2 22.8 k g/m2 MAR[facility]ON ([facility]) Systolic blood pressure 157 mm[Hg] 157 mm[Hg] A [facility] ([facility]) Systolic blood pressure 154 mm[Hg] 154 mm[Hg] A [facility] ([facility]) Body weight 2121.6 [oz_av] 2121.6 [oz_av] ATHEN A ([facility]) Systolic blood pressure 112 mm[Hg] 112 mm[Hg] Elvi ACOSTA ([facility]) left Diastolic blood pressure 82 mm[Hg] 82 mm[Hg] [facility] [place] ([facility]) left Body height 63 [in_i] 63 [in_i] [facility] ([facility], ) 5'3" Body weight 121.00 [lb_av] 121.00 [lb_av] [facility] Body mass index (BMI) [Ratio] 21.4 kg/m2 21.4 k g/m2 [facility] ([facility], ) Body weight 54.886 kg 54.886 kg [facility] ([facility]) Patient Treatment Plan of Care Planned Activity Planned Date Details Description Data Source (s) Acetaminophen 325 MG / Oxycodone Hydrochloride 5 MG Oral Tablet MARLON ([facility])
--- OUTSIDE RECORDS SUMMARY | 2021-05-30 19:02 | CCD ---
Author Author [facility] Organization [facility] Address Unknown Phone Unavailable Care Team Providers Care Academic Dean Name Role Phone Sudhir, Leyda DAMAGE PREVENTION COORDINATOR DAMAGE PREVENTION COORDINATOR Unavailable Unavailable Sudhir, A Leyda DAMAGE PREVENTION COORDINATOR Unavailable Unavailable Sudhir, A Leyda DAMAGE PREVENTION COORDINATOR Unavailable Unavailable Sudhir, A Leyda DAMAGE PREVENTION COORDINATOR Unavailable Unavailable Sudhir, A Leyda DAMAGE PREVENTION COORDINATOR Unavailable Unavailable Sudhir, A Leyda DAMAGE PREVENTION COORDINATOR Unavailable Unavailable Sudhir, A Leyda DAMAGE PREVENTION COORDINATOR Unavailable Unavailable Sudhir, A Leyda DAMAGE PREVENTION COORDINATOR Unavailable Unavailable Sudhir, A Leyda DAMAGE PREVENTION COORDINATOR Unavailable Unavailable Sudhir, A Leyda DAMAGE PREVENTION COORDINATOR Unavailable Unavailable Sudhir, A Leyda DAMAGE PREVENTION COORDINATOR Unavailable Unavailable Sudhir, A Leyda DAMAGE PREVENTION COORDINATOR Unavailable Unavailable Sudhir, A Leyda DAMAGE PREVENTION COORDINATOR Unavailable Unavailable Sudhir, A Leyda DAMAGE PREVENTION COORDINATOR Unavailable Unavailable Sudhir, A Leyda DAMAGE PREVENTION COORDINATOR Unavailable Unavailable Sudhir, A Leyda DAMAGE PREVENTION COORDINATOR Unavailable Unavailable Sudhir, A Leyda DAMAGE PREVENTION COORDINATOR Unavailable Unavailable Sudhir, A Leyda DAMAGE PREVENTION COORDINATOR Unavailable Unavailable Sudhir, A Leyda DAMAGE PREVENTION COORDINATOR Unavailable Unavailable Sudhir, A Leyda DAMAGE PREVENTION COORDINATOR Unavailable Unavailable Sudhir, A Leyda DAMAGE PREVENTION COORDINATOR Unavailable Unavailable Sudhir, A Leyda DAMAGE PREVENTION COORDINATOR Unavailable Unavailable Sudhir, A Leyda DAMAGE PREVENTION COORDINATOR Unavailable Unavailable Sudhir, A Leyda DAMAGE PREVENTION COORDINATOR Unavailable Unavailable Sudhir, A Leyda DAMAGE PREVENTION COORDINATOR Unavailable Unavailable Sudhir, A Leyda DAMAGE PREVENTION COORDINATOR Unavailable Unavailable Sudhir, A Elyda DAMAGE PREVENTION COORDINATOR Unavailable Unavailable Sudhir, A Leyda DAMAGE PREVENTION COORDINATOR Unavailable Unavailable Sudhir, A Leyda DAMAGE PREVENTION COORDINATOR Unavailable Unavailable Sudhir, A Leyda DAMAGE PREVENTION COORDINATOR Unavailable Unavailable Sudhir, A Leyda DAMAGE PREVENTION COORDINATOR Unavailable Unavailable Sudhir, A Leyda DAMAGE PREVENTION COORDINATOR Unavailable Unavailable Re-disclosure Warning The records that [...] is protected by Article 27-F of the [facility] Public Health law. If you continue you may have access to information: Regarding HIV / AIDS; Provided by facilities licensed or operated by the [facility] Office of Mental Health; or Provided by the [facility] Office for People With Developmental Disabilities. If such information is present, then the following [facility] mandated warning applies: This information has [...] law may result in a fine or mcfp sentence or both. A general authorization for the release of medical or other information is NOT sufficient authorization for further disc losure. Allergies and Adverse Reactions Type Description Substance Reaction Status Data Source(s ) Allergy to substance Allergy to substance Allergy to substance [facility] ([facility]) Family History Family Member Name Family Member Gender Family Member Status Date o f Status Description Data Source(s) Unknown Unknown Problem [facility] Encounters Encounter Providers Location Date Indications Data Source(s ) ALVA Carver-: [address], [place] [address], Ph. Attender: Leyda CALLE [facility] Medical 06/01/2020 12:00:00 AM EST [facility]ON ([facility]) Outpatient Attender: ALVA GUBANNER 04/16/2020 08:01:20 P M EDT [facility] Medications Medication Brand Name Start Date Product Form Dose Route Admi nistrative Instructions Pharmacy Instructions Status Indications Reaction Description Data Source(s) Acetaminophen 325 MG / Oxycodone Hydroch loride 5 MG Oral Tablet oxycodone- acetaminophen 5 mg-325 mg tablet oxycodone-acetaminophen 5 mg-325 mg tablet completed acetaminop hen 325 MG / oxycodone hydrochloride 5 MG Oral Tablet [facility] ([facility]) Insurance Providers Payer name Policy type / Coverage type Policy ID Covered libertarian ID Covered libertarian's relationship to rod Policy Rod Plan Information MEDICARE A [id number] Self [id number] [id number] Medicare [place] Medigap Part B [id number] Self [id number] [facility] ([facility]) Commercial Hmo .[id number] Self Hmo [employer]etna ([facility]) Commercial MEBQPPQR .[id number] Self MEBQPPQR Aetna ([facility]) Commercial MEBQPPQR [id number] Self MEBQPPQR AETNA MEDICARE COMPLETE G MEBQPPQR Self MEBQPPQR AETNA MEDICARE COMPLETE G MEBOPPOR Self MEBOPPOR MEDICARE A [id number] Self [id number] [id number] [employer] Plans P [id number] S [id number] Medicare S [id number] S [id number] J11 AETNA US HEALTHCARE TX O MEBQPPQR [id number] S MEBQPPQR MEDICARE C [id number] S [id number] J11 AETNA US HEALTHCARE O MEBQPPQR [id number] S MEBQPPQR AETNA MEDICARE MEBQPPQR SP MEBQP PQR AETNA MEDICARE MEBQPPQR SP MEBQP PQR MEDICARE [id number] SP [id number] A [employer] OPTIONS [id number] SP [id number] Today's Option Medicare Commercial [id number] Self [id number] Today[employer] Medicare Commercial [id number] Self [id number] TOD[employer] OPTIONS [id number] SP [id number] TODAYS OPTIONS [id number] SP [id number] Medicare [place] Medicare Primary [id number] Self MEDICARE [id number] SP [id number] A [employer]IONS/[facility] O [id number] S [id number] MEDICARE C [id number] S [id number] A MEDICARE COMPLETE [id number] SP [id number] MEDICARE COMPLETE-[facility] O [id number] S [id number] MEDICARE COMPLETE [id number] SP [id number] MEDICARE [id number] SP [id number] A [employer]MA[employer] GOLD [id number] SP [id number] 5 [employer]MANA GOLD O [id number] S [id number] MEDICARE [id number] SP [id number] [id number] [employer] Plans S [id number] S [id number] Medicare P UNAVAILABLE S UNAVAILA BLE [employer] S UNAVAILABLE S UNAVAILABLE [employer] GOLD [id number] SP [id number] 5 AETNA MEDICARE MEBQPPQR SP MEBQP PQR [employer] [facility] 322 (pr) Medigap Part B [id number] Self [id number] Problems, Conditions, and Diagnoses No Information Surgeries/Procedures No Information Results ID Date Data Source [id number] 05/28/2021 02:46:00 PM EDT [facility] Name Value Range Interpretation Code Description Data Izabella rce(s) Supporting Document(s) SARS-CoV-2 (COVID 19) NEGATIVE - SARS-CoV-2 (COVID19) [facility] This lab was ordered by [facility] a nd reported by [facility]. Procedure Social History No Information Vital Signs ID Date Data Source UNK Name Value Range Interpretation Code Description Data Source(s) Diastolic blood pressure 85 mm[Hg] 85 mm[Hg] [facility]ON ([facility]) Diastolic blood pressure 91 mm[Hg] 91 mm[Hg] [facility] ([facility]) Body height 64 [in_i] 64 [in_i] [facility] ([facility]) Body mass index (BMI) [Ratio] 22.8 kg/m2 22.8 k g/m2 [facility] ([facility]) Systolic blood pressure 157 mm[Hg] 157 mm[Hg] A [facility] ([facility]) Systolic blood pressure 154 mm[Hg] 154 mm[Hg] A [facility] ([facility]) Body weight 2121.6 [oz_av] 2121.6 [oz_av] ATHEN A ([facility]) Systolic blood pressure 112 mm[Hg] 112 mm[Hg] Elvi ACOSTA ([facility]) left Diastolic blood pressure 82 mm[Hg] 82 mm[Hg] [facility] ([facility]) left Body height 63 [in_i] 63 [in_i] [facility] ([facility], ) 5'3" Body weight 121.00 [lb_av] 121.00 [lb_av] [facility] Body mass index (BMI) [Ratio] 21.4 kg/m2 21.4 k g/m2 [facility] ([facility], ) Body weight 54.886 kg 54.886 kg [facility] ([facility]) Patient Treatment Plan of Care Planned Activity Planned Date Details Description Data Source (s) Acetaminophen 325 MG / Oxycodone Hydrochloride 5 MG Oral Tablet [facility] ([facility])
== END 2021-05-30 18:50 | disposition left against medical advice (07) ==
LOC: M ED 12:44
DX: Z53.29 Procedure and treatment not carried out because of patient's decision for other reasons (principal)

== ENCOUNTER → 2021-09-06 | Outpatient (CLI) | payer MEDICARE | LOC: M WUC 13:08 | PROVIDERS: ATTEND Physician Assistant | DX: S20.222A Contusion of left back wall of thorax, initial encounter (principal); W18.30XA Fall on same level, unspecified, initial encounter; Y92.009 Unspecified place in unspecified non-institutional (private) residence as the place of occurrence of the external cause ==

== ENCOUNTER 2022-03-04 13:53 | Emergency (ER) | payer MEDICARE, OTHER ==
[~2022-03-04] VITALS: Ht 160 cm; Wt 48.1 kg
[2022-03-04] MEDS ORDERED: LISI2.5T8 PO (14:09)
[2022-03-04] MEDS ORDERED: NS 1,440 ML in IV 1 EA IV ONE (14:45)
[2022-03-04] MEDS ORDERED: cefTRIAXone SOD 2 GM in D5W MINI-BAG PLUS 50 ML IV ONE (14:45)
[2022-03-04 15:14] LABS: VENOUS BASE EXCESS -4.1 (-2.0-2.0); VENOUS HCO3 21.8 MEQ/L (23.0-27.0); VENOUS O2 SATURATION 43.6 % (60.0-80.0); VENOUS PARTIAL PRESSURE CO2 42.5 mmHg (38.0-50.0); VENOUS PARTIAL PRESSURE O2 26.1 mmHg (30.0-50.0); VENOUS PH 7.327 UNITS (7.330-7.430); VENOUS TOTAL CO2 23.1 MEQ/L (24.0-28.0)
[2022-03-04 15:18] LABS: BASO # 0.1 10^3/uL (0.0-0.2); BASO % 0.5 % (0.0-1.0); EOS # 0.1 10^3/uL (0.0-0.5); EOS % 0.6 % (0.0-3.0); HEMATOCRIT 35.3 % (42.0-52.0); LYMPH # 1.6 10^3/uL (1.5-5.0); LYMPH % 17.2 % (24.0-44.0); MEAN CORPUSCULAR HEMOGLOBIN 34.5 pg (27.0-33.0); MEAN CORPUSCULAR VOLUME 101.4 fl (80.0-96.0); MONO # 0.8 10^3/uL (0.0-0.8); MONO % 8.6 % (2.0-8.0); NEUTROPHILS # 6.9 10^3/uL (1.5-8.5); NEUTROPHILS % 72.6 % (36.0-66.0); PLATELET COUNT, AUTOMATED 347 10^3/uL (150-450); RED BLOOD COUNT 3.48 10^6/uL (4.30-6.10); WHITE BLOOD COUNT 9.5 10^3/uL (4.0-10.0)
[2022-03-04 15:27] LABS: INR 0.86; PROTHROMBIN TIME 12.2 SECONDS (12.7-14.5)
[2022-03-04 15:57] LABS: CK-MB VALUE MASS 1.7 NG/ML (<3.6); MB/CK RELATIVE INDEX 3.95 (< OR =4)
[2022-03-04 16:05] LABS: BILIRUBIN,DIRECT 0.1 MG/DL (0.0-0.2); BILIRUBIN,TOTAL 0.2 MG/DL (0.2-1.0); CALCIUM LEVEL 8.8 MG/DL (8.8-10.2); CREATININE FOR GFR 3.13 MG/DL (0.70-1.30); GLOMERULAR FILTRATION RATE 20.8 (>42); POTASSIUM SERUM 3.9 MEQ/L (3.5-5.1); THYROID STIMULATING HORMONE 1.52 uIU/ML (0.358-3.740); TOTAL PROTEIN 6.3 GM/DL (6.4-8.2)
[2022-03-04 16:45] VITALS: BP 122/89
[2022-03-05] MEDS ORDERED: META0.52 PO (17:33)
[2022-03-05] MEDS ORDERED: DOCU100C16 PO (17:33)
[2022-03-05] MEDS ORDERED: VITA250T7 PO (17:33)
[2022-03-05] MEDS ORDERED: SPIR12.9 INH (17:33)
[2022-03-05] MEDS ORDERED: VENTAER INH (17:33)
== END 2022-03-04 17:35 | disposition left against medical advice (07) ==
LOC: M ED 13:53
DX: N17.9 Acute kidney failure, unspecified (principal); J44.9 Chronic obstructive pulmonary disease, unspecified; F17.200 Nicotine dependence, unspecified, uncomplicated
CPT/HCPCS: 71045; 76775; 80048; 80076; 82550; 82553; 82803; 83605; 83880; 84443; 84484; 85025; 85610; 87040; 87486; 87581; 87633; 87798; 93005; 93041; 94760; 96365; 96366; 99285; J0696

== ENCOUNTER 2022-03-05 14:01 | Inpatient (IN) | payer OTHER ==
[~2022-03-05] VITALS: Ht 157.5 cm; Wt 49.6 kg
[~2022-03-05 14:01] MED LIST changes: +LISI2.5T8 PO
[2022-03-05] MEDS ORDERED: NS 1,450 ML in IV 1 EA IV ONE (14:35)
[2022-03-05] MEDS ORDERED: NICOTINE 21MG/24HR 1 EA TRANSDERMAL TD ONE (14:35)
[2022-03-05] MEDS ORDERED: cefTRIAXone SOD 2 GM in D5W MINI-BAG PLUS 50 ML IV ONE (14:35)
[2022-03-05 15:17] LABS: BASO % 0.4 % (0.0-1.0); EOS # 0.1 10^3/uL (0.0-0.5); EOS % 0.6 % (0.0-3.0); HEMATOCRIT 34.2 % (42.0-52.0); HEMOGLOBIN 11.4 g/dl (13.5-17.5); LYMPH # 1.6 10^3/uL (1.5-5.0); LYMPH % 17.3 % (24.0-44.0); MEAN CORPUSCULAR HEMOGLOBIN 34.1 pg (27.0-33.0); MEAN CORPUSCULAR HGB CONC 33.3 g/dl (32.0-36.5); MEAN CORPUSCULAR VOLUME 102.4 fl (80.0-96.0); MONO # 0.8 10^3/uL (0.0-0.8); MONO % 8.7 % (2.0-8.0); NEUTROPHILS # 6.8 10^3/uL (1.5-8.5); NEUTROPHILS % 72.6 % (36.0-66.0); PLATELET COUNT, AUTOMATED 352 10^3/uL (150-450); RED BLOOD COUNT 3.34 10^6/uL (4.30-6.10); WHITE BLOOD COUNT 9.3 10^3/uL (4.0-10.0)
[2022-03-05 16:06] LABS: CK-MB VALUE MASS 1.8 NG/ML (<3.6); MB/CK RELATIVE INDEX 4.29 (< OR =4)
[2022-03-05 16:11] LABS: ALBUMIN 2.7 GM/DL (3.2-5.2); ALT/SGPT 15 U/L (12-78); BILIRUBIN,DIRECT < 0.1 MG/DL (0.0-0.2); BILIRUBIN,TOTAL 0.2 MG/DL (0.2-1.0); BLOOD UREA NITROGEN 37 MG/DL (7-18); CALCIUM LEVEL 8.4 MG/DL (8.8-10.2); CARBON DIOXIDE LEVEL 21 MEQ/L (21-32); CHLORIDE LEVEL 111 MEQ/L (98-107); CREATININE FOR GFR 2.55 MG/DL (0.70-1.30); GLOMERULAR FILTRATION RATE 26.3 (>42); GLUCOSE, FASTING 113 MG/DL (70-100); LIPASE 131 U/L (73-393); NT-PRO BNP 277 PG/ML (<450); POTASSIUM SERUM 4.6 MEQ/L (3.5-5.1); SODIUM LEVEL 138 MEQ/L (136-145); TOTAL PROTEIN 6.1 GM/DL (6.4-8.2)
[2022-03-05] MEDS ORDERED: NS 1,000 ML IV SCH ×2 (16:45→16:48)
[2022-03-05] MEDS ORDERED: NS 2,000 ML IV ONE (16:50)
[2022-03-05] MEDS ORDERED: MIDODRINE 5 MG TAB PO ONE (16:50)
[2022-03-05] MEDS ORDERED: SPIR12.9 INH (17:33)
[2022-03-05] MEDS ORDERED: VENTAER INH (17:33)
[2022-03-05] MEDS ORDERED: VITA250T7 PO (17:33)
[2022-03-05] MEDS ORDERED: DOCU100C16 PO (17:33)
[2022-03-05] MEDS ORDERED: META0.52 PO (17:33)
[2022-03-05] MEDS ORDERED: HOME MED LIST COMPLETE! XX SCH (17:40)
[2022-03-05] MEDS ORDERED: ALBUTEROL 90 MCG/ACT 8GM HFA INHALER INH PRN (17:50)
[2022-03-05] MEDS ORDERED: LORazepam 2 MG TAB PO PRN (18:40)
[2022-03-05] MEDS ORDERED: OXAZEPAM 10MG CAP PO PRN (18:40)
[2022-03-05] MEDS ORDERED: PERCOCET 5MG/325MG TAB PO PRN (18:45)
[2022-03-05] MEDS: DOCUSATE SODIUM 100MG CAPSULE PO SCH (19:49)
[2022-03-05] MEDS: FOLIC ACID 1MG TAB PO SCH (19:50)
[2022-03-05] MEDS: THIAMINE 100 MG TAB PO SCH (19:50)
[2022-03-05] MEDS ORDERED: SIMVASTATIN 20 MG TAB PO SCH (21:00)
[2022-03-05] MEDS ORDERED: LIDOCAINE 5% (LIDODERM) PATCH TD SCH (21:00)
[2022-03-05] MEDS ORDERED: NICOTINE 21MG/24HR 1 EA TRANSDERMAL TD SCH (21:00)
[2022-03-05] MEDS: MULTIVITAMINS/MINERALS THERAP 1 TAB PO SCH (21:00)
[2022-03-05 21:13] VITALS: BP 144/66
[2022-03-05 21:15] VITALS: BP 144/66
[2022-03-05] MEDS: NS 1,000 ML IV SCH (21:24)
[2022-03-06] MEDS: NS 1,000 ML IV SCH (02:22)
[2022-03-06 04:45] VITALS: BP 102/54
[2022-03-06 06:15] LABS: HEMATOCRIT 27.7 % (42.0-52.0); MEAN CORPUSCULAR HEMOGLOBIN 34.7 pg (27.0-33.0); MEAN CORPUSCULAR HGB CONC 32.9 g/dl (32.0-36.5); MEAN CORPUSCULAR VOLUME 105.7 fl (80.0-96.0); PLATELET COUNT, AUTOMATED 265 10^3/uL (150-450); RED BLOOD COUNT 2.62 10^6/uL (4.30-6.10); WHITE BLOOD COUNT 5.9 10^3/uL (4.0-10.0)
[2022-03-06 06:19] LABS: HEMOGLOBIN 9.1 g/dl (13.5-17.5)
[2022-03-06 06:51] LABS: CALCIUM LEVEL 7.2 MG/DL (8.8-10.2); CREATININE FOR GFR 1.59 MG/DL (0.70-1.30); GLOMERULAR FILTRATION RATE 45.4 (>42); POTASSIUM SERUM 4.1 MEQ/L (3.5-5.1)
[2022-03-06] MEDS ORDERED: **NOTE PATIENT COMMENT** MISC XX SCH (09:00)
[2022-03-06] MEDS ORDERED: CYANOCOBALAMIN 250 MCG TABLET PO SCH (09:00)
[2022-03-06] MEDS ORDERED: METAMUCIL (PSYLLIUM) PACKET PO SCH (09:00)
[2022-03-06] MEDS ORDERED: NICOTINE 21MG/24HR 1 EA TRANSDERMAL TD SCH (09:00)
[2022-03-06] MEDS: FOLIC ACID 1MG TAB PO SCH (10:11)
[2022-03-06] MEDS: DOCUSATE SODIUM 100MG CAPSULE PO SCH (10:11)
[2022-03-06] MEDS: THIAMINE 100 MG TAB PO SCH (10:12)
[2022-03-06] MEDS: MULTIVITAMINS/MINERALS THERAP 1 TAB PO SCH (10:12)
[2022-03-06 11:17] VITALS: BP 129/83
[2022-03-06] MEDS ORDERED: SODIUM BICARBONATE 150 MEQ in STERILE WATER LITER BAG 1,000 ML IV ONE (12:00)
[2022-03-06 12:27] VITALS: BP 127/72
[2022-03-06 18:47] LABS: BLOOD UREA NITROGEN 22 MG/DL (7-18); CALCIUM LEVEL 7.1 MG/DL (8.8-10.2); CARBON DIOXIDE LEVEL 26 MEQ/L (21-32); CHLORIDE LEVEL 111 MEQ/L (98-107); CREATININE FOR GFR 1.23 MG/DL (0.70-1.30); GLOMERULAR FILTRATION RATE > 60.0 (>42); GLUCOSE, FASTING 103 MG/DL (70-100); MAGNESIUM LEVEL 1.5 MG/DL (1.8-2.4); POTASSIUM SERUM 3.8 MEQ/L (3.5-5.1); SODIUM LEVEL 141 MEQ/L (136-145)
[2022-03-06 19:30] VITALS: BP 147/81
[2022-03-06] MEDS ORDERED: MAGNESIUM OXIDE 400MG TAB (MAG-OX) PO ONE (19:30)
[2022-03-06] MEDS ORDERED: PREVNAR 13 VACCINE SYRINGE IM.IMMUN ONE (20:00)
== END 2022-03-06 19:40 | disposition home or self-care (01) | DRG 683 ==
LOC: M ED 14:01 → M ED INP 16:41 → ENRESERV 19:27 → M 4MAIN 21:14
PROVIDERS: ADMIT General Practice; ATTEND General Practice
DX: N17.9 Acute kidney failure, unspecified (principal); K52.1 Toxic gastroenteritis and colitis; E87.2 Acidosis; N40.1 Benign prostatic hyperplasia with lower urinary tract symptoms; I73.9 Peripheral vascular disease, unspecified; J44.9 Chronic obstructive pulmonary disease, unspecified; F17.210 Nicotine dependence, cigarettes, uncomplicated; F10.10 Alcohol abuse, uncomplicated; K21.9 Gastro-esophageal reflux disease without esophagitis; K29.50 Unspecified chronic gastritis without bleeding; F32.A Depression, unspecified; E86.0 Dehydration; N18.9 Chronic kidney disease, unspecified; E78.5 Hyperlipidemia, unspecified; T46.4X5A Adverse effect of angiotensin-converting-enzyme inhibitors, initial encounter; M54.50 Low back pain, unspecified; R33.9 Retention of urine, unspecified; I12.9 Hypertensive chronic kidney disease with stage 1 through stage 4 chronic kidney disease, or unspecified chronic kidney disease; Z86.010 Personal history of colon polyps; E78.00 Pure hypercholesterolemia, unspecified; F03.90 Unspecified dementia, unspecified severity, without behavioral disturbance, psychotic disturbance, mood disturbance, and anxiety; Z95.820 Peripheral vascular angioplasty status with implants and grafts; Z79.82 Long term (current) use of aspirin; Z79.02 Long term (current) use of antithrombotics/antiplatelets; Z79.899 Other long term (current) drug therapy

== ENCOUNTER 2022-04-06 13:03 | Day surgery (SDC) | payer OTHER ==
[~2022-04-06] VITALS: Ht 160 cm; Wt 50.3 kg
[~2022-04-06 13:03] MED LIST changes: +CLOP75TA99 PO; +DOCU100C16 PO; +LIDOCAINE 2% 100MG/5ML SDV (FOR ANES.) As Ordered ONE; +META0.52 PO; +NS 1,000 ML IV ONE; -PLAV1TAB2 PO; +SPIR12.9 INH; +VITA250T7 PO; +propofoL 200 MG/20 ML VIAL As Ordered ONE
== END 2022-04-06 14:07 | disposition home or self-care (01) ==
LOC: M OPP 13:03
PROVIDERS: ATTEND Surgery
DX: K62.5 Hemorrhage of anus and rectum (principal); Z53.8 Procedure and treatment not carried out for other reasons

== ENCOUNTER → 2022-04-26 | Outpatient (CLI) | payer OTHER, MEDICARE ==
[~2022-04-26] MED LIST changes: -CLOP75TA99 PO; -LIDOCAINE 2% 100MG/5ML SDV (FOR ANES.) As Ordered ONE; -NS 1,000 ML IV ONE; +PLAV1TAB2 PO; -propofoL 200 MG/20 ML VIAL As Ordered ONE
== END ==
LOC: M RAD 18:37
PROVIDERS: ATTEND Physician Assistant
DX: R05.9 Cough, unspecified (principal)

== ENCOUNTER → 2022-05-12 | Outpatient (CLI) | payer OTHER | LOC: M RAD 12:29 | PROVIDERS: ATTEND Surgery Vascular Surgery | DX: I70.213 Atherosclerosis of native arteries of extremities with intermittent claudication, bilateral legs (principal) ==

== ENCOUNTER → 2022-05-18 | Outpatient (CLI) | payer OTHER ==
[~2022-05-18] MED LIST changes: +CLOP75TA99 PO; -PLAV1TAB2 PO
== END ==
LOC: M RAD 07:00
PROVIDERS: ATTEND Surgery Vascular Surgery
DX: I70.213 Atherosclerosis of native arteries of extremities with intermittent claudication, bilateral legs (principal)

== ENCOUNTER 2022-12-12 23:48 | Emergency (ER) | payer OTHER ==
[~2022-12-12] VITALS: Ht 162.6 cm; Wt 115.0 kg
[2022-12-13 00:53] LABS: HEMATOCRIT 47.1 % (42.0-52.0); HEMOGLOBIN 14.4 g/dl (13.5-17.5); MEAN CORPUSCULAR HEMOGLOBIN 27.1 pg (27.0-33.0); MEAN CORPUSCULAR HGB CONC 30.6 g/dl (32.0-36.5); MEAN CORPUSCULAR VOLUME 88.7 fl (80.0-96.0); PLATELET COUNT, AUTOMATED 312 10^3/uL (150-450); RED BLOOD COUNT 5.31 10^6/uL (4.30-6.10)
[2022-12-13 00:59] LABS: ETHYL ALCOHOL (ETHANOL) 0.167 % (0.000-0.010)
[2022-12-13 01:01] LABS: ACETAMINOPHEN LEVEL < 2.0 UG/ML (10.0-20.0); ALBUMIN 3.2 G/DL (3.2-5.2); ALKALINE PHOSPHATASE 159 U/L (46-116); ALT/SGPT 17 U/L (7.0-40); AST/SGOT 23 U/L (<34); BILIRUBIN,DIRECT < 0.1 MG/DL (<0.4); BILIRUBIN,TOTAL 0.3 MG/DL (0.3-1.2); BLOOD UREA NITROGEN 15 MG/DL (9-23); CALCIUM LEVEL 8.4 MG/DL (8.3-10.6); CARBON DIOXIDE LEVEL 25 MMOL/L (20-31); CHLORIDE LEVEL 108 MMOL/L (98-107); CREATININE FOR GFR 1.75 MG/DL (0.70-1.30); GLOMERULAR FILTRATION RATE 40.7 (>42); GLUCOSE, FASTING 106 MG/DL (74-106); POTASSIUM SERUM 4.8 MMOL/L (3.5-5.1); SALICYLATE LEVEL < 3.0 MG/DL (<30); SODIUM LEVEL 138 MMOL/L (136-145); TOTAL PROTEIN 6.8 G/DL (5.7-8.2)
[2022-12-13 01:03] LABS: THYROID STIMULATING HORMONE 2.201 uIU/ML (0.55-4.78)
[2022-12-13] MEDS ORDERED: NS 1,000 ML IV ONE (01:10)
[2022-12-13] MEDS ORDERED: HOME MED LIST COMPLETE! XX SCH (03:15)
[2022-12-13 03:59] LABS: CREATININE FOR GFR 1.52 MG/DL (0.70-1.30); GLOMERULAR FILTRATION RATE 47.8 (>42); POTASSIUM SERUM 4.3 MMOL/L (3.5-5.1)
[2022-12-13 06:54] LABS: AMPHETAMINES LEVEL URINE NEGATIVE (NEGATIVE); BARBITURATES URINE NEGATIVE (NEGATIVE); BENZODIAZEPINES URINE NEGATIVE (NEGATIVE); CANNABINOIDS URINE NEGATIVE (NEGATIVE); COCAINE METABOLITE URINE NEGATIVE (NEGATIVE); METHADONE URINE NEGATIVE (NEGATIVE); OPIATES URINE NEGATIVE (NEGATIVE); PHENCYCLIDINE URINE NEGATIVE (NEGATIVE)
[2022-12-13 09:54] VITALS: BP 163/80
== END 2022-12-13 10:52 | disposition home or self-care (01) ==
LOC: M ED 23:48
DX: F10.129 Alcohol abuse with intoxication, unspecified (principal); I10 Essential (primary) hypertension; J45.909 Unspecified asthma, uncomplicated; E78.5 Hyperlipidemia, unspecified

== ENCOUNTER 2023-10-09 16:05 | Inpatient (IN) | payer MEDICARE, OTHER ==
[~2023-10-09] VITALS: Ht 160 cm; Wt 56.5 kg
[2023-10-09] MEDS: PANTOPRAZOLE 40MG VIAL IV ONE (17:30)
[2023-10-09] MEDS: NS 1,000 ML IV ONE ×2 (17:30→18:42)
[2023-10-09 17:36] LABS: BASO % 0.2 % (0.0-1.0); EOS % 0.1 % (0.0-3.0); HEMATOCRIT 39.4 % (42.0-52.0); HEMOGLOBIN 11.8 g/dl (13.5-17.5); LYMPH # 1.8 10^3/uL (1.5-5.0); LYMPH % 10.9 % (24.0-44.0); MEAN CORPUSCULAR HEMOGLOBIN 28.2 pg (27.0-33.0); MEAN CORPUSCULAR HGB CONC 29.9 g/dl (32.0-36.5); MEAN CORPUSCULAR VOLUME 94.3 fl (80.0-96.0); MONO % 6.1 % (2.0-8.0); NEUTROPHILS # 13.3 10^3/uL (1.5-8.5); PLATELET COUNT, AUTOMATED 543 10^3/uL (150-450); RED BLOOD COUNT 4.18 10^6/uL (4.30-6.10); WHITE BLOOD COUNT 16.2 10^3/uL (4.0-10.0)
[2023-10-09 17:50] LABS: INR 1.09; PARTIAL THROMBOPLASTIN TIME 26.5 SECONDS (24.8-34.2); PROTHROMBIN TIME 13.8 SECONDS (12.5-14.5)
[2023-10-09 17:59] LABS: LIPASE 25 U/L (12-53)
[2023-10-09 18:00] LABS: CK-MB VALUE MASS 1.8 NG/ML (<3.6)
[2023-10-09 18:09] LABS: ALBUMIN 3.2 G/DL (3.2-5.2); ALKALINE PHOSPHATASE 131 U/L (46-116); ALT/SGPT 15 U/L (7.0-40); AST/SGOT 21 U/L (<34); BILIRUBIN,DIRECT < 0.1 MG/DL (<0.4); BILIRUBIN,TOTAL 0.2 MG/DL (0.3-1.2); BLOOD UREA NITROGEN 69 MG/DL (9-23); CALCIUM LEVEL 9.1 MG/DL (8.3-10.6); CARBON DIOXIDE LEVEL 16 MMOL/L (20-31); CHLORIDE LEVEL 112 MMOL/L (98-107); CPK CREATINE PHOSPHOKINASE 87 U/L (46-171); CREATININE FOR GFR 1.99 MG/DL (0.70-1.30); GLUCOSE, FASTING 116 MG/DL (74-106); MB/CK RELATIVE INDEX 2.06 (< OR =4); POTASSIUM SERUM 6.7 MMOL/L (3.5-5.1); SODIUM LEVEL 138 MMOL/L (136-145); TOTAL PROTEIN 6.6 G/DL (5.7-8.2)
[2023-10-09 18:12] LABS: RSV AMPLIFICATION NEGATIVE (NEGATIVE)
[2023-10-09] MEDS: DEXTROSE 50% 50ML VIAL IV ONE (18:15)
[2023-10-09] MEDS: DEXTROSE 50% 50ML SYRINGE IV ONE (18:42)
[2023-10-09] MEDS: PATIROMER SORBITEX CALCIUM 8.4 GM POWDER PACKET (VELTASSA) PO ONE (18:42)
[2023-10-09] MEDS: INSULIN LISPRO (NovoLOG) PER UNIT IV ONE (18:42)
[2023-10-09 19:28] LABS: CK-MB VALUE MASS 1.6 NG/ML (<3.6)
[2023-10-09 19:34] LABS: MB/CK RELATIVE INDEX 2.19 (< OR =4)
[2023-10-09] MEDS: cefTRIAXone SOD 1 GM in D5W MINI-BAG PLUS 50 ML IV ONE (20:25)
[2023-10-09] MEDS: DEXTROSE 50% 50ML SYRINGE IV STA (20:26)
[2023-10-09] MEDS: metroNIDAZOLE 500 MG in IV 1 EA IV ONE (20:59)
[2023-10-09 21:02] LABS: CALCIUM LEVEL 7.4 MG/DL (8.3-10.6); CREATININE FOR GFR 1.87 MG/DL (0.70-1.30); GLOMERULAR FILTRATION RATE 37.6 (>42)
[2023-10-09] MEDS ORDERED: CLOP75TA2 PO (21:27)
[2023-10-09] MEDS ORDERED: LEVO25TA5 PO (21:27)
[2023-10-09] MEDS ORDERED: ATOR40TA75 PO (21:27)
[2023-10-09] MEDS ORDERED: PREG25CA3 PO (21:27)
[2023-10-09] MEDS ORDERED: HOME MED LIST COMPLETE! XX SCH (21:30)
[2023-10-09 22:29] LABS: CREATININE, URINE 54.1 MG/DL; CREATININE,RANDOM URINE 54.1 MG/DL
[2023-10-09 22:30] LABS: MAU/CREAT RATIO 90.5 MCG/MG (0.0-30.0)
[2023-10-10] VITALS (7 sets, daily range): BP systolic 117–138; BP diastolic 56–68; TEMP 98–98.6; O2SAT 94–99
[2023-10-10] MEDS ORDERED: HumuLIN R (REGULAR) INSULIN (NovoLIN R) **100U/ML** PER UNIT IV STA (00:24)
[2023-10-10] MEDS ORDERED: NS 1,000 ML IV SCH (01:10)
[2023-10-10] MEDS: SOD POLYSTYRENE SULFONATE SUSP 15GM 60ML UD PO ONE (03:00)
[2023-10-10] MEDS: DOXYCYCLINE HYCLATE 100 MG in D5W MINI-BAG PLUS 100 ML IV SCH (03:15)
[2023-10-10] MEDS: NS 1,000 ML IV SCH (03:16)
[2023-10-10 04:35] LABS: BASO % 0.2 % (0.0-1.0); EOS # 0.1 10^3/uL (0.0-0.5); EOS % 0.4 % (0.0-3.0); HEMATOCRIT 27.2 % (42.0-52.0); LYMPH # 1.7 10^3/uL (1.5-5.0); LYMPH % 12.4 % (24.0-44.0); MEAN CORPUSCULAR HEMOGLOBIN 28.4 pg (27.0-33.0); MEAN CORPUSCULAR HGB CONC 30.9 g/dl (32.0-36.5); MEAN CORPUSCULAR VOLUME 91.9 fl (80.0-96.0); MONO # 1.3 10^3/uL (0.0-0.8); MONO % 9.7 % (2.0-8.0); NEUTROPHILS # 10.2 10^3/uL (1.5-8.5); NEUTROPHILS % 76.8 % (36.0-66.0); RED BLOOD COUNT 2.96 10^6/uL (4.30-6.10); WHITE BLOOD COUNT 13.3 10^3/uL (4.0-10.0)
[2023-10-10 04:41] LABS: HEMOGLOBIN 8.4 g/dl (13.5-17.5); PLATELET COUNT, AUTOMATED 366 10^3/uL (150-450)
[2023-10-10 05:18] LABS: CALCIUM LEVEL 8.1 MG/DL (8.3-10.6); CREATININE FOR GFR 1.75 MG/DL (0.70-1.30); GLOMERULAR FILTRATION RATE 40.5 (>42); POTASSIUM SERUM 5.3 MMOL/L (3.5-5.1)
[2023-10-10] MEDS: DEXTROSE 50% 50ML SYRINGE IV STA (05:40)
[2023-10-10] MEDS: LEVOTHYROXINE 25MCG TABLET (0.025MG) PO SCH (05:40)
[2023-10-10] MEDS: DOCUSATE SODIUM 100MG CAPSULE PO SCH (09:00)
[2023-10-10] MEDS: PANTOPRAZOLE 40MG VIAL IV SCH (09:20)
[2023-10-10] MEDS: SUCRALFATE 1 GM TAB PO SCH ×2 (09:20→13:03)
[2023-10-10] MEDS: PATIROMER SORBITEX CALCIUM 8.4 GM POWDER PACKET (VELTASSA) PO SCH (09:24)
[2023-10-10] MEDS: PREGABALIN 25 MG CAP (LYRICA) PO SCH (09:51)
[2023-10-10] MEDS ORDERED: NYSTATIN OINTMENT 15 GM TOP PRN (10:05)
[2023-10-10 10:30] LABS: PERCENT SATURATION 19.3 % (19.7-50.0)
[2023-10-10 10:33] LABS: FERRITIN 43.6 NG/ML (10.5-307.3)
[2023-10-10] MEDS ORDERED: PATIROMER SORBITEX CALCIUM 8.4 GM POWDER PACKET (VELTASSA) PO SCH (12:00)
[2023-10-10] MEDS ORDERED: SOD POLYSTYRENE SULFONATE SUSP 15GM 60ML UD PO ONE (12:00)
[2023-10-10 12:13] LABS: HEMATOCRIT 26.5 % (42.0-52.0); HEMOGLOBIN 8.4 g/dl (13.5-17.5)
[2023-10-10] MEDS: SODIUM BICARBONATE 150 MEQ in STERILE WATER LITER BAG 1,000 ML IV SCH (13:02)
[2023-10-10] MEDS: ACETAMINOPHEN TAB 650MG DOSE (2X325MG) PO PRN (13:04)
[2023-10-10] MEDS: diphenhydrAMINE 50MG CAP PO STA (19:59)
[2023-10-10] MEDS: cefTRIAXone SOD 1 GM in D5W MINI-BAG PLUS 50 ML IV SCH (19:59)
[2023-10-10] MEDS: ATORVASTATIN 20 MG TAB PO SCH (20:35)
[2023-10-10] MEDS: DOXYCYCLINE HYCLATE 100MG TABLET PO SCH (20:36)
[2023-10-10] MEDS: RAMELTEON 8 MG TAB (ROZEREM) PO SCH (20:36)
[2023-10-10 20:51] LABS: HEMATOCRIT 24.3 % (42.0-52.0); HEMOGLOBIN 7.6 g/dl (13.5-17.5)
[2023-10-11] VITALS (8 sets, daily range): BP systolic 105–143; BP diastolic 54–80; TEMP 97.5–98.9; O2SAT 92–100
[2023-10-11 05:54] LABS: HEMATOCRIT 22.8 % (42.0-52.0); HEMOGLOBIN 7.4 g/dl (13.5-17.5); MEAN CORPUSCULAR HEMOGLOBIN 28.7 pg (27.0-33.0); MEAN CORPUSCULAR HGB CONC 32.5 g/dl (32.0-36.5); MEAN CORPUSCULAR VOLUME 88.4 fl (80.0-96.0); PLATELET COUNT, AUTOMATED 328 10^3/uL (150-450); RED BLOOD COUNT 2.58 10^6/uL (4.30-6.10); WHITE BLOOD COUNT 9.6 10^3/uL (4.0-10.0)
[2023-10-11 06:19] LABS: CREATININE FOR GFR 1.36 MG/DL (0.70-1.30); GLOMERULAR FILTRATION RATE 54.2 (>42)
[2023-10-11] MEDS: FERRIC CARBOXYMALTOSE INJ 750 MG, VIAL MATE ADAPTER 1 EACH in NS 250 ML IV ONE (09:19)
[2023-10-11 12:13] LABS: HEMATOCRIT 23.1 % (42.0-52.0); HEMOGLOBIN 7.4 g/dl (13.5-17.5)
[2023-10-11 20:20] LABS: HEMATOCRIT 22.3 % (42.0-52.0); HEMOGLOBIN 7.2 g/dl (13.5-17.5)
[2023-10-12] VITALS (9 sets, daily range): BP systolic 114–148; BP diastolic 56–85; TEMP 97.3–98.3; O2SAT 90–96
[2023-10-12 05:47] LABS: HEMATOCRIT 23.4 % (42.0-52.0); HEMOGLOBIN 7.3 g/dl (13.5-17.5); MEAN CORPUSCULAR HEMOGLOBIN 28.1 pg (27.0-33.0); MEAN CORPUSCULAR HGB CONC 31.2 g/dl (32.0-36.5); PLATELET COUNT, AUTOMATED 316 10^3/uL (150-450); WHITE BLOOD COUNT 6.5 10^3/uL (4.0-10.0)
[2023-10-12 06:22] LABS: BLOOD UREA NITROGEN 33 MG/DL (9-23); CALCIUM LEVEL 7.7 MG/DL (8.3-10.6); CARBON DIOXIDE LEVEL 26 MMOL/L (20-31); CHLORIDE LEVEL 115 MMOL/L (98-107); CREATININE FOR GFR 1.15 MG/DL (0.70-1.30); GLOMERULAR FILTRATION RATE > 60.0 (>42); GLUCOSE, FASTING 129 MG/DL (74-106); POTASSIUM SERUM 3.9 MMOL/L (3.5-5.1); SODIUM LEVEL 146 MMOL/L (136-145)
[2023-10-12 08:19] LABS: PROCALCITONIN 0.16 ng/ml
[2023-10-12] MEDS: diphenhydrAMINE 25MG CAP PO ONE (10:21)
[2023-10-12] MEDS: ACETAMINOPHEN TAB 650MG DOSE (2X325MG) PO ONE (10:21)
[2023-10-12 14:20] LABS: HEMATOCRIT 28.6 % (42.0-52.0); HEMOGLOBIN 8.9 g/dl (13.5-17.5)
[2023-10-12] MEDS: ANALGESIC BALM CRM 3OZ TOP PRN (23:33)
[2023-10-13 06:00] VITALS: BP 146/60; TEMP 97.5; O2SAT 91
[2023-10-13 06:12] LABS: HEMATOCRIT 26.5 % (42.0-52.0); HEMOGLOBIN 8.5 g/dl (13.5-17.5)
[2023-10-13 09:22] LABS: LDH LACTATE DEHYDROGENASE 231 U/L (120-246)
[2023-10-13 09:23] LABS: ALBUMIN 2.5 G/DL (3.2-5.2); ALKALINE PHOSPHATASE 86 U/L (46-116); ALT/SGPT 20 U/L (7.0-40); AST/SGOT 30 U/L (<34); BILIRUBIN,DIRECT 0.1 MG/DL (<0.4); BILIRUBIN,TOTAL 0.3 MG/DL (0.3-1.2); BLOOD UREA NITROGEN 21 MG/DL (9-23); CARBON DIOXIDE LEVEL 26 MMOL/L (20-31); CHLORIDE LEVEL 112 MMOL/L (98-107); CREATININE FOR GFR 1.02 MG/DL (0.70-1.30); GLOMERULAR FILTRATION RATE > 60.0 (>42); GLUCOSE, FASTING 100 MG/DL (74-106); MAGNESIUM LEVEL 1.4 MG/DL (1.8-2.4); POTASSIUM SERUM 3.7 MMOL/L (3.5-5.1); SODIUM LEVEL 143 MMOL/L (136-145)
[2023-10-13 09:31] LABS: HEMATOCRIT 28.6 % (42.0-52.0); HEMOGLOBIN 9.1 g/dl (13.5-17.5); MEAN CORPUSCULAR HEMOGLOBIN 29.2 pg (27.0-33.0); MEAN CORPUSCULAR HGB CONC 31.8 g/dl (32.0-36.5); MEAN CORPUSCULAR VOLUME 91.7 fl (80.0-96.0); PLATELET COUNT, AUTOMATED 285 10^3/uL (150-450); RED BLOOD COUNT 3.12 10^6/uL (4.30-6.10); WHITE BLOOD COUNT 6.8 10^3/uL (4.0-10.0)
[2023-10-13] MEDS ORDERED: PANT40TA29 PO (11:39)
[2023-10-13] MEDS ORDERED: SUCR1TA PO (11:39)
[2023-10-13] MEDS ORDERED: CEFD300CAP PO (11:44)
[2023-10-13] MEDS ORDERED: DOXY-444 PO (11:44)
[2023-10-13] MEDS ORDERED: SELF1KIT MC (11:44)
[2023-10-13] MEDS ORDERED: BACI1CAP PO (11:44)
[2023-10-13] MEDS ORDERED: NORV5TAB PO (11:44)
[2023-10-13] MEDS: amLODIPine 5 MG TAB PO SCH (13:34)
[2023-10-13] MEDS: MAGNESIUM OXIDE 400MG TAB (MAG-OX) PO ONE (13:35)
[2023-10-13] MEDS: MAG SULF 1GM/100ML (MAG RUN) 1 GM in IV 1 EA IV ONE (13:36)
[2023-10-13 14:00] VITALS: BP 127/65; TEMP 97; O2SAT 91
[2023-10-13 20:00] VITALS: BP 149/70; TEMP 97.7; O2SAT 96
[2023-10-13] MEDS: PANTOPRAZOLE 40MG TAB (PROTONIX) PO SCH (21:10)
[2023-10-14 06:00] VITALS: BP 135/70; TEMP 97.5; O2SAT 93
[2023-10-14 06:07] LABS: HEMATOCRIT 27.6 % (42.0-52.0); HEMOGLOBIN 8.8 g/dl (13.5-17.5); MEAN CORPUSCULAR HEMOGLOBIN 29.1 pg (27.0-33.0); MEAN CORPUSCULAR HGB CONC 31.9 g/dl (32.0-36.5); MEAN CORPUSCULAR VOLUME 91.4 fl (80.0-96.0); PLATELET COUNT, AUTOMATED 306 10^3/uL (150-450); RED BLOOD COUNT 3.02 10^6/uL (4.30-6.10); WHITE BLOOD COUNT 8.9 10^3/uL (4.0-10.0)
[2023-10-14 06:32] LABS: BLOOD UREA NITROGEN 16 MG/DL (9-23); CALCIUM LEVEL 7.7 MG/DL (8.3-10.6); CARBON DIOXIDE LEVEL 26 MMOL/L (20-31); CHLORIDE LEVEL 111 MMOL/L (98-107); GLOMERULAR FILTRATION RATE > 60.0 (>42); GLUCOSE, FASTING 97 MG/DL (74-106); POTASSIUM SERUM 3.8 MMOL/L (3.5-5.1); SODIUM LEVEL 141 MMOL/L (136-145)
[2023-10-14 08:18] VITALS: BP 130/72
[2023-10-14 09:25] LABS: HEMATOCRIT 31.5 % (42.0-52.0); HEMOGLOBIN 10.2 g/dl (13.5-17.5); MEAN CORPUSCULAR HEMOGLOBIN 30.2 pg (27.0-33.0); MEAN CORPUSCULAR HGB CONC 32.4 g/dl (32.0-36.5); MEAN CORPUSCULAR VOLUME 93.2 fl (80.0-96.0); PLATELET COUNT, AUTOMATED 311 10^3/uL (150-450); RED BLOOD COUNT 3.38 10^6/uL (4.30-6.10); WHITE BLOOD COUNT 9.3 10^3/uL (4.0-10.0)
== END 2023-10-14 10:43 | disposition home or self-care (01) | DRG 377 ==
LOC: M ED 16:05 → M ED INP 23:43 → ENRESERV 10-10 04:30 → M PCU 10-10 05:12 → M MSPAV 10-12 14:07
PROVIDERS: ADMIT Family Medicine; ATTEND General Practice
PROC: 30233N1 Transfusion of Nonautologous Red Blood Cells into Peripheral Vein, Percutaneous Approach (ICD-10-PCS; principal; 2023-10-09)
DX: K92.2 Gastrointestinal hemorrhage, unspecified (principal); J18.9 Pneumonia, unspecified organism; J96.01 Acute respiratory failure with hypoxia; E87.0 Hyperosmolality and hypernatremia; D62 Acute posthemorrhagic anemia; E87.20 Acidosis, unspecified; N17.9 Acute kidney failure, unspecified; J44.0 Chronic obstructive pulmonary disease with (acute) lower respiratory infection; D68.32 Hemorrhagic disorder due to extrinsic circulating anticoagulants; E87.5 Hyperkalemia; I12.9 Hypertensive chronic kidney disease with stage 1 through stage 4 chronic kidney disease, or unspecified chronic kidney disease; N18.30 Chronic kidney disease, stage 3 unspecified; F17.200 Nicotine dependence, unspecified, uncomplicated; G62.9 Polyneuropathy, unspecified; E03.9 Hypothyroidism, unspecified; I73.9 Peripheral vascular disease, unspecified; N28.1 Cyst of kidney, acquired; R19.7 Diarrhea, unspecified; J47.9 Bronchiectasis, uncomplicated; I71.40 Abdominal aortic aneurysm, without rupture, unspecified; I16.0 Hypertensive urgency; Z95.820 Peripheral vascular angioplasty status with implants and grafts; Z89.511 Acquired absence of right leg below knee; Z89.011 Acquired absence of right thumb; Z79.02 Long term (current) use of antithrombotics/antiplatelets; Z79.899 Other long term (current) drug therapy

== ENCOUNTER → 2023-12-04 | Outpatient (CLI) | payer OTHER, MEDICARE ==
[~2023-12-04] MED LIST changes: +ATOR40TA75 PO; +BACI1CAP PO; +CEFD300CAP PO; +DOXY-440 PO; +LEVO25TA5 PO; +NORV5TAB PO; +PANT40TA29 PO; +PREG25CA3 PO; +SELF1KIT MC; +SUCR1TA PO
== END ==
LOC: M RAD 13:42
PROVIDERS: ATTEND Internal Medicine
DX: F17.290 Nicotine dependence, other tobacco product, uncomplicated (principal); Z87.891 Personal history of nicotine dependence

== ENCOUNTER 2024-01-20 21:30 | Inpatient (IN) | payer OTHER, MEDICARE ==
[~2024-01-20] VITALS: Ht 160 cm; Wt 49.4 kg
[2024-01-21 00:39] LABS: BASO # 0.1 10^3/uL (0.0-0.2); BASO % 0.4 % (0.0-1.0); EOS # 0.2 10^3/uL (0.0-0.5); EOS % 0.9 % (0.0-3.0); HEMATOCRIT 43.8 % (42.0-52.0); HEMOGLOBIN 14.4 g/dl (13.5-17.5); LYMPH # 1.9 10^3/uL (1.5-5.0); LYMPH % 11.5 % (24.0-44.0); MEAN CORPUSCULAR HEMOGLOBIN 30.3 pg (27.0-33.0); MEAN CORPUSCULAR HGB CONC 32.9 g/dl (32.0-36.5); MONO % 6.3 % (2.0-8.0); NEUTROPHILS # 12.9 10^3/uL (1.5-8.5); NEUTROPHILS % 80.5 % (36.0-66.0); PLATELET COUNT, AUTOMATED 308 10^3/uL (150-450); RED BLOOD COUNT 4.76 10^6/uL (4.30-6.10); WHITE BLOOD COUNT 16.1 10^3/uL (4.0-10.0)
[2024-01-21 01:07] LABS: CALCIUM LEVEL 8.9 MG/DL (8.3-10.6); CREATININE FOR GFR 1.74 MG/DL (0.70-1.30); GLOMERULAR FILTRATION RATE 40.7 (>42); POTASSIUM SERUM 5.9 MMOL/L (3.5-5.1)
[2024-01-21] MEDS: NS 1,000 ML IV ONE (01:57)
[2024-01-21] MEDS: PREGABALIN 25 MG CAP (LYRICA) PO ONE (02:51)
[2024-01-21] MEDS: NS 1,000 ML IV SCH (05:16)
[2024-01-21] MEDS: SOD POLYSTYRENE SULFONATE SUSP 15GM 60ML UD PO ONE (05:17)
[2024-01-21] MEDS: LEVOTHYROXINE 25MCG TABLET (0.025MG) PO SCH (05:17)
[2024-01-21] MEDS: cefTRIAXone SOD 1 GM in D5W MINI-BAG PLUS 50 ML IV SCH (05:17)
[2024-01-21] MEDS ORDERED: PANT40TA29 PO (06:17)
[2024-01-21] MEDS ORDERED: SUCR1TA PO (06:23)
[2024-01-21] MEDS ORDERED: GABA-282 PO (06:27)
[2024-01-21] MEDS ORDERED: RISATAB3 PO (06:27)
[2024-01-21] MEDS ORDERED: ALBU10.7 INH (06:27)
[2024-01-21] MEDS ORDERED: HOME MED LIST COMPLETE! XX SCH ×2 (06:30→12:00)
[2024-01-21] MEDS: DOCUSATE SODIUM 100MG CAPSULE PO SCH (09:57)
[2024-01-21] MEDS: HEPARIN SOD (PORCINE) 5000UNITS/ML 1ML VIAL/SYRINGE SC SCH (10:02)
[2024-01-21] MEDS: ACETAMINOPHEN TAB 650MG DOSE (2X325MG) PO PRN (11:21)
[2024-01-21] MEDS ORDERED: VITA100093 PO (11:58)
[2024-01-21] MEDS ORDERED: AMLO1TAB25 PO (11:58)
[2024-01-21] MEDS ORDERED: ATOR80TA59 PO (11:58)
[2024-01-21] MEDS ORDERED: CYCL5TAB PO (11:58)
[2024-01-21 13:08] LABS: BLOOD UREA NITROGEN 34 MG/DL (9-23); CALCIUM LEVEL 8.2 MG/DL (8.3-10.6); CARBON DIOXIDE LEVEL 23 MMOL/L (20-31); CHLORIDE LEVEL 115 MMOL/L (98-107); CREATININE FOR GFR 1.16 MG/DL (0.70-1.30); GLOMERULAR FILTRATION RATE > 60.0 (>42); GLUCOSE, FASTING 92 MG/DL (74-106); POTASSIUM SERUM 4.8 MMOL/L (3.5-5.1); SODIUM LEVEL 143 MMOL/L (136-145)
[2024-01-21 14:40] VITALS: BP 126/73; TEMP 97.7; O2SAT 95
[2024-01-21] MEDS: ATORVASTATIN 20 MG TAB PO SCH (15:32)
[2024-01-21] MEDS: amLODIPine 5 MG TAB PO SCH (15:33)
[2024-01-21 20:00] VITALS: BP 122/70; TEMP 97.7; O2SAT 93
[2024-01-21] MEDS: CYCLOBENZAPRINE 5MG TABLET PO SCH (20:30)
[2024-01-21] MEDS: PREGABALIN 25 MG CAP (LYRICA) PO SCH (20:30)
[2024-01-22 04:00] VITALS: BP 115/72; TEMP 97.9; O2SAT 94
[2024-01-22 08:21] LABS: ALBUMIN 2.7 G/DL (3.2-5.2); ALKALINE PHOSPHATASE 134 U/L (46-116); ALT/SGPT 20 U/L (7.0-40); AST/SGOT 15 U/L (<34); BILIRUBIN,TOTAL 0.4 MG/DL (0.3-1.2); BLOOD UREA NITROGEN 18 MG/DL (9-23); CALCIUM LEVEL 8.2 MG/DL (8.3-10.6); CARBON DIOXIDE LEVEL 24 MMOL/L (20-31); CHLORIDE LEVEL 115 MMOL/L (98-107); CREATININE FOR GFR 0.91 MG/DL (0.70-1.30); GLOMERULAR FILTRATION RATE > 60.0 (>42); GLUCOSE, FASTING 126 MG/DL (74-106); POTASSIUM SERUM 4.1 MMOL/L (3.5-5.1); SODIUM LEVEL 143 MMOL/L (136-145); TOTAL PROTEIN 5.4 G/DL (5.7-8.2)
[2024-01-22 08:26] LABS: PROCALCITONIN 0.05 ng/ml
[2024-01-22 08:58] VITALS: BP 123/74; TEMP 97.7; O2SAT 96
[2024-01-22 11:41] VITALS: BP 126/74; TEMP 97.5; O2SAT 92
[2024-01-22 14:12] LABS: BASO # 0.1 10^3/uL (0.0-0.2); BASO % 0.9 % (0.0-1.0); EOS # 0.3 10^3/uL (0.0-0.5); EOS % 3.9 % (0.0-3.0); HEMATOCRIT 38.3 % (42.0-52.0); HEMOGLOBIN 12.5 g/dl (13.5-17.5); LYMPH # 2.1 10^3/uL (1.5-5.0); LYMPH % 23.9 % (24.0-44.0); MEAN CORPUSCULAR HEMOGLOBIN 30.3 pg (27.0-33.0); MEAN CORPUSCULAR HGB CONC 32.6 g/dl (32.0-36.5); MONO # 0.7 10^3/uL (0.0-0.8); MONO % 8.3 % (2.0-8.0); NEUTROPHILS # 5.5 10^3/uL (1.5-8.5); NEUTROPHILS % 62.7 % (36.0-66.0); PLATELET COUNT, AUTOMATED 279 10^3/uL (150-450); RED BLOOD COUNT 4.12 10^6/uL (4.30-6.10); WHITE BLOOD COUNT 8.8 10^3/uL (4.0-10.0)
[2024-01-22 20:00] VITALS: BP 128/74; TEMP 97.9; O2SAT 94
[2024-01-23 04:00] VITALS: BP 144/71; TEMP 97.9; O2SAT 94
[2024-01-23 08:38] VITALS: BP 145/78
== END 2024-01-23 15:37 | DRG 641 ==
LOC: M ED 21:30 → M ED INP 01-21 04:03 → M MSPAV 01-21 14:42
PROVIDERS: ADMIT Preventive Medicine Undersea and Hyperbaric Medicine; ATTEND Internal Medicine
DX: E87.5 Hyperkalemia (principal); N17.9 Acute kidney failure, unspecified; F10.27 Alcohol dependence with alcohol-induced persisting dementia; I12.9 Hypertensive chronic kidney disease with stage 1 through stage 4 chronic kidney disease, or unspecified chronic kidney disease; N18.2 Chronic kidney disease, stage 2 (mild); J44.9 Chronic obstructive pulmonary disease, unspecified; G54.6 Phantom limb syndrome with pain; E86.0 Dehydration; E03.9 Hypothyroidism, unspecified; G89.29 Other chronic pain; E78.5 Hyperlipidemia, unspecified; F17.200 Nicotine dependence, unspecified, uncomplicated; I73.9 Peripheral vascular disease, unspecified; Z89.511 Acquired absence of right leg below knee; Z89.011 Acquired absence of right thumb; Z79.890 Hormone replacement therapy; Z79.899 Other long term (current) drug therapy

== ENCOUNTER → 2025-05-18 | Outpatient (CLI) | payer MEDICARE, OTHER ==
[~2025-05-18] MED LIST changes: +ALBU10.7 INH; +AMLO1TAB25 PO; +ATOR80TA59 PO; -BAYE325T12 PO; +BAYE325T2 PO; +CYAN250T5 PO; +CYCL5TAB4 PO; +GABA-1172 PO; +RISATAB3 PO; +VITA100093 PO; -VITA250T7 PO
== END ==
LOC: M RAD 13:37
PROVIDERS: ATTEND Nurse Practitioner Family
DX: F17.210 Nicotine dependence, cigarettes, uncomplicated (principal); R91.8 Other nonspecific abnormal finding of lung field